=== PATIENT | female | born 1945 | race Caucasian/White ===

== ENCOUNTER 2017-08-24 16:59 | Observation (INO) | payer MEDICARE, OTHER ==
[2017-08-24] MEDS ORDERED: SODIUM CHLORIDE 0.9% 1,000 ML IV STA (17:21)
[2017-08-24] MEDS ORDERED: ONDANSETRON 4 MG/2 ML VIAL IVP STA (17:21)
[2017-08-24] MEDS ORDERED: RX INFO: IV CONTRAST WAS GIVEN 1 EACH MISC MISCELLANE PRN (17:22)
[2017-08-24 17:47] LABS: Basophils % (A) 0 %; Eosinophils % (A) 0 %; HCT 39.7 % (34.0-46.0); HGB 13.7 gm/dL (11.4-16.0); Lymphocytes # (A) 1.2 k/uL (1.0-4.8); Lymphocytes % (A) 14 %; MCH 29.4 pg (25.0-35.0); MCHC 34.6 g/dL (31.0-37.0); MCV 84.9 fL (80.0-100.0); Mean Platelet Volume 6.9; Monocytes # (A) 0.5 k/uL (0-1.0); Monocytes % (A) 6 %; Neutrophils # (A) 6.8 k/uL (1.3-7.7); Neutrophils % (A) 78 %; Platelet Count 441 k/uL (150-450); RBC 4.68 m/uL (3.80-5.40); RDW 13.6 % (11.5-15.5); WBC 8.7 k/uL (3.8-10.6)
[2017-08-24 17:49] LABS: Albumin 4.4 g/dL (3.5-5.0); Calcium 9.3 mg/dL (8.4-10.2); Total Bilirubin 0.8 mg/dL (0.2-1.3)
[2017-08-24 17:50] LABS: Potassium 4.8 mmol/L (3.5-5.1)
--- NOTE | 2017-08-24 18:27 | ED ---
Nausea/Vomiting/Diarrhea HPI - General Chief complaint: Nausea/Vomiting/Diarrhea Stated complaint: Nausea/vomiting Time Seen by Provider: 08/24/17 17:16 Source: patient, EMS, RN notes reviewed Mode of arrival: EMS Limitations: physical limitation - History of Present Illness Initial comments: This a 72-year-old female presents emergency department via EMS from [facility] on the leg for nausea vomiting. Patient's advise been having worsening issues. Primary care physician did call stating that he requests patient be admitted and see GI. Patient herself does complain of some abdominal discomfort primarily on the right. Patient states that she has difficulty and bleeding and did have a fall and which staff caught her and lowered her to the ground. She states she did not hit her head or have any loss conscious. PCP requests CT of brain causes of concern of head injury. Patient reports no dysuria no hematuria denies any diarrhea constipation reports no fevers or chills. Patient denies chest pain or shortness of breath - Related Data Home Medications Medication Instructions Recorded Confirmed Calcium Carbonate/Vitamin D3 1 tab PO DAILY 03/10/15 05/19/15 [Calcium 600-Vit D3 400 Tablet] Donepezil [Aricept] 10 mg PO BID 03/10/15 05/19/15 Furosemide [Lasix] 40 mg PO DAILY 03/10/15 05/19/15 Phenytoin Sodium Extended 200 mg PO BID 03/10/15 05/19/15 [Dilantin] Potassium Chloride ER [K-Dur 10] 20 meq PO DAILY 03/10/15 05/19/15 Warfarin [Coumadin] 2.5 mg PO DAILY 03/10/15 05/20/15 carBAMazepine [TEGretol] 400 mg PO TID 03/10/15 05/19/15 Fenofibrate [Lofibra] 160 mg PO HS 05/19/15 05/19/15 Memantine HCl [Namenda Xr] 28 mg PO DAILY 05/19/15 05/19/15 Metolazone [Zaroxolyn] 5 mg PO DAILY 05/19/15 05/19/15 Pioglitazone [Actos] 30 mg PO DAILY 05/19/15 05/19/15 Rosuvastatin Calcium [Crestor] 40 mg PO DAILY 05/19/15 05/19/15 Previous Rx's Medication Instructions Recorded traMADol HCl [Ultram] 50 mg PO Q6H PRN #60 tab 05/22/15 Allergies Allergy/AdvReac Type Severity Reaction Status Date / Time codeine Allergy Vomiting Verified 05/19/15 22:13 cortisone Allergy Vomiting Verified 05/19/15 22:13 Review of Systems ROS Statement: Those systems with pertinent positive or pertinent negative responses have been documented in the HPI. ROS Other: All systems not noted in ROS Statement are negative. Past Medical History Past Medical History: Cancer, Heart Failure, Diabetes Mellitus, Deep Vein Thrombosis (DVT), Hyperlipidemia, Hypertension, Memory Impairment, Osteoarthritis (OA), Pneumonia, Pulmonary Embolus (PE), Seizure Disorder Additional Past Medical History / Comment(s): falls, poor circulation, per past hx tia, enlarged heart, bronchitis,osteoporosis, cervical cancer-had sx only no chemo no radiation History of Any Multi-Drug Resistant Organisms: None Reported Past Surgical History: Cholecystectomy, Hysterectomy, Orthopedic Surgery Additional Past Surgical History / Comment(s): cataract removal bilateral, orif rt elbow, yaquelin ankle sx has palte and screws yaquelin Past Anesthesia/Blood Transfusion Reactions: Previous Problems w/ Anesthesia Additional Past Anesthesia/Blood Transfusion Reaction / Comment(s): per past hx pt statted" they gave me aa and abx to close together and i almost " Past Psychological History: No Psychological Hx Reported Smoking Status: Never smoker Past Alcohol Use History: None Reported Past Drug Use History: None Reported - Past Family History Father History Unknown: Yes Mother History Unknown: Yes General Exam Limitations: physical limitation General appearance: alert, in no apparent distress Head exam: Present: atraumatic, normocephalic, normal inspection Eye exam: Present: normal appearance, PERRL, EOMI. Absent: scleral icterus, conjunctival injection, periorbital swelling ENT exam: Present: normal exam, normal oropharynx, mucous membranes moist Neck exam: Present: normal inspection, full ROM. Absent: tenderness, meningismus, lymphadenopathy Respiratory exam: Present: normal lung sounds bilaterally. Absent: respiratory distress, wheezes, rales, rhonchi, stridor Cardiovascular Exam: Present: regular rate, normal rhythm, normal heart sounds. Absent: systolic murmur, diastolic murmur, rubs, gallop, clicks GI/Abdominal exam: Present: soft, tenderness (Mild right lower quadrant tenderness), normal bowel sounds. Absent: distended, guarding, rebound, rigid Back exam: Absent: CVA tenderness (R), CVA tenderness (L) Skin exam: Present: warm, dry, intact, normal color. Absent: rash Course Vital Signs 08/24/17 08/24/17 17:01 18:07 Temperature 97.8 F Pulse Rate 83 91 Respiratory 18 16 Rate Blood Pressure 140/67 154/64 O2 Sat by Pulse 99 98 Oximetry Medical Decision Making - Medical Decision Making 72-year-old female presented from it from [facility] on the [place] for ongoing nausea vomiting worsened today. PCP is concerned about her condition with her nausea vomiting is requesting the patient be admitted for GI consultation. Patient had lab work, CT here to do. No acute abnormality's. She does have mild dehydration, acute kidney injury. Patient will be admitted for IV hydration, antiemetics and GI consult. - Lab Data Result diagrams: 08/24/17 17:22 08/24/17 17:22 Lab Results 08/24/17 08/24/17 08/24/17 Range/Units 17:22 17:22 17:22 WBC 8.7 (3.8-10.6) k/uL RBC 4.68 (3.80-5.40) m/uL Hgb 13.7 (11.4-16.0) gm/dL Hct 39.7 (34.0-46.0) % MCV 84.9 (80.0-100.0) fL MCH 29.4 (25.0-35.0) pg MCHC 34.6 (31.0-37.0) g/dL RDW 13.6 (11.5-15.5) % Plt Count 441 (150-450) k/uL Neutrophils % 78 % Lymphocytes % 14 % Monocytes % 6 % Eosinophils % 0 % Basophils % 0 % Neutrophils # 6.8 (1.3-7.7) k/uL Lymphocytes # 1.2 (1.0-4.8) k/uL Monocytes # 0.5 (0-1.0) k/uL Eosinophils # 0.0 (0-0.7) k/uL Basophils # 0.0 (0-0.2) k/uL Sodium 140 (137-145) mmol/L Potassium 4.8 (3.5-5.1) mmol/L Chloride 92 L (98-107) mmol/L Carbon Dioxide 33 H (22-30) mmol/L Anion Gap 15 mmol/L BUN 29 H (7-17) mg/dL Creatinine 1.07 H (0.52-1.04) mg/dL Est GFR (CKD-EPI)AfAm 59 (>60 ml/min/1.73 sqM) Est GFR (CKD-EPI)NonAf 52 (>60 ml/min/1.73 sqM) Glucose 130 H (74-99) mg/dL Calcium 9.3 (8.4-10.2) mg/dL Total Bilirubin 0.8 (0.2-1.3) mg/dL AST 38 H (14-36) U/L ALT 31 (9-52) U/L Alkaline Phosphatase 127 H (38-126) U/L Troponin I <0.012 (0.000-0.034) ng/mL Total Protein 8.0 (6.3-8.2) g/dL Albumin 4.4 (3.5-5.0) g/dL Amylase 68 (30-110) U/L Lipase 108 (23-300) U/L Urine Color Urine Appearance (Clear) Urine pH (5.0-8.0) Ur Specific [place] (1.001-1.035) Urine Protein (Negative) Urine Glucose (UA) (Negative) Urine Ketones (Negative) Urine Blood (Negative) Urine Nitrite (Negative) Urine Bilirubin (Negative) Urine Urobilinogen (<2.0) mg/dL Ur Leukocyte Esterase (Negative) Urine RBC (0-5) /hpf Urine WBC (0-5) /hpf Ur Squamous Epith Cells (0-4) /hpf Urine Bacteria (None) /hpf Hyaline Casts (0-2) /lpf 08/24/17 Range/Units 18:59 WBC (3.8-10.6) k/uL RBC (3.80-5.40) m/uL Hgb (11.4-16.0) gm/dL Hct (34.0-46.0) % MCV (80.0-100.0) fL MCH (25.0-35.0) pg MCHC (31.0-37.0) g/dL RDW (11.5-15.5) % Plt Count (150-450) k/uL Neutrophils % % Lymphocytes % % Monocytes % % Eosinophils % % Basophils % % Neutrophils # (1.3-7.7) k/uL Lymphocytes # (1.0-4.8) k/uL Monocytes # (0-1.0) k/uL Eosinophils # (0-0.7) k/uL Basophils # (0-0.2) k/uL Sodium (137-145) mmol/L Potassium (3.5-5.1) mmol/L Chloride (98-107) mmol/L Carbon Dioxide (22-30) mmol/L Anion Gap mmol/L BUN (7-17) mg/dL Creatinine (0.52-1.04) mg/dL Est GFR (CKD-EPI)AfAm (>60 ml/min/1.73 sqM) Est GFR (CKD-EPI)NonAf (>60 ml/min/1.73 sqM) Glucose (74-99) mg/dL Calcium (8.4-10.2) mg/dL Total Bilirubin (0.2-1.3) mg/dL AST (14-36) U/L ALT (9-52) U/L Alkaline Phosphatase (38-126) U/L Troponin I (0.000-0.034) ng/mL Total Protein (6.3-8.2) g/dL Albumin (3.5-5.0) g/dL Amylase (30-110) U/L Lipase (23-300) U/L Urine Color Yellow Urine Appearance Clear (Clear) Urine pH 8.0 (5.0-8.0) Ur Specific [place] 1.019 (1.001-1.035) Urine Protein Negative (Negative) Urine Glucose (UA) Negative (Negative) Urine Ketones Negative (Negative) Urine Blood Negative (Negative) Urine Nitrite Negative (Negative) Urine Bilirubin Negative (Negative) Urine Urobilinogen <2.0 (<2.0) mg/dL Ur Leukocyte Esterase Large H (Negative) Urine RBC 1 (0-5) /hpf Urine WBC 5 (0-5) /hpf Ur Squamous Epith Cells 3 (0-4) /hpf Urine Bacteria Rare H (None) /hpf Hyaline Casts 3 H (0-2) /lpf 08/24/17 19:11 EKG performed at 17:13 normal sinus rhythm with a rate of 87 CO 156 QRS 86 QT/ QTC 406/488 Disposition Clinical Impression: Nausea & vomiting, Weakness, Abdominal pain, ALMITA (acute kidney injury), Dehydration Disposition: ADMITTED IP TO THIS HOSP Condition: Stable Referrals: Sam Jones MD [Primary Care Provider] - 1-2 days
[2017-08-24 19:05] LABS: Appearance,Urine Clear (Clear); Bacteria,Urine Rare /hpf; Bilirubin,Urine Negative (Negative); Blood,Urine Negative (Negative); Color,Urine Yellow; Glucose,Urine (UA) Negative (Negative); Hyaline Casts,Urine 3 /lpf (0-2); Ketones,Urine Negative (Negative); Leukocyte Esterase,Urine Large (Negative); Nitrite,Urine Negative (Negative); Protein,Urine Negative (Negative); RBC,Urine 1 /hpf (0-5); Specific Gravity,Urine 1.019 (1.001-1.035); Squamous Epithelial Cell,Urine 3 /hpf (0-4); Urobilinogen,Urine <2.0 mg/dL (<2.0); WBC,Urine 5 /hpf (0-5)
--- NOTE | 2017-08-24 19:07 | CT ---
EXAMINATION: CT brain wo con DATE AND TIME: 08/24/2017 6:52 PM ORDERING PROVIDER: Jhonny Espino CLINICAL INDICATION: Pain following trauma TECHNIQUE: Standard departmental protocol. COMPARISON: CT 09/08/2010 DESCRIPTION: The calvarium is intact. There is no intracranial hemorrhage. There is no mass or mass e ffect. There is no definite new attenuation defect. Remainder of the intra-axial and extra-axial comp artment examination is unremarkable. The paranasal sinuses, middle ear cavities, and mastoid sinus ai r cells are clear. The orbits are intact. IMPRESSION: NO ACUTE PROCESS.
--- NOTE | 2017-08-24 19:10 | CT ---
EXAMINATION TYPE: CT abdomen pelvis w con DATE OF EXAM: 08/24/2017 COMPARISON: 08/18/2010 HISTORY: Fall today with right sided abdominal pain, nausea and vomiting. CT DLP: 1627 mGycm Automated exposure control for dose reduction was used. TECHNIQUE: Helical acquisition of images was performed from the lung bases through the pelvis. CONTRAST: Performed without Oral Contrast and with IV Contrast, patient injected with 80 mL of Isovue 370. FINDINGS: LUNG BASES: No significant abnormality is appreciated. LIVER/GB: No significant abnormality is appreciated. PANCREAS: No significant abnormality is seen. SPLEEN: No significant abnormality is seen. ADRENALS: No significant abnormality is seen. KIDNEYS: No significant abnormality is seen. FREE AIR: No free air is visualized. RETROPERITONEAL ADENOPATHY: None visualized REPRODUCTIVE ORGANS: No significant abnormality is seen URINARY BLADDER: No significant abnormality is seen. PELVIC ADENOPATHY: None visualized. OSSEOUS STRUCTURES: No significant abnormality is seen. BOWEL: No significant abnormality is seen. VASCULATURE: Unremarkable. IMPRESSION: NO ACUTE PROCESS.
[2017-08-24] MEDS ORDERED: ACETAMINOPHEN TAB 325 MG TAB PO PRN (19:17)
[2017-08-24] MEDS ORDERED: ONDANSETRON 4 MG/2 ML VIAL IVP PRN (19:17)
[2017-08-24] MEDS: SODIUM CHLORIDE 0.9% 1,000 ML IV SCH (20:29)
[2017-08-25 06:57] VITALS: BP 123/59; PULSE 75; TEMP 97.9
[2017-08-25] MEDS ORDERED: ONDANSETRON 4 MG/2 ML VIAL IVP PRN (07:37)
[2017-08-25] MEDS ORDERED: PANTOPRAZOLE 40 MG/10 ML VIAL IVP SCH (09:00)
[2017-08-25 09:59] LABS: Basophils % (A) 0 %; Eosinophils # (A) 0.1 k/uL (0-0.7); Eosinophils % (A) 1 %; HCT 37.7 % (34.0-46.0); HGB 12.7 gm/dL (11.4-16.0); Lymphocytes # (A) 1.3 k/uL (1.0-4.8); Lymphocytes % (A) 14 %; MCH 29.4 pg (25.0-35.0); MCHC 33.8 g/dL (31.0-37.0); Mean Platelet Volume 6.8; Monocytes # (A) 0.5 k/uL (0-1.0); Monocytes % (A) 6 %; Neutrophils # (A) 7.4 k/uL (1.3-7.7); Neutrophils % (A) 78 %; Platelet Count 399 k/uL (150-450); RBC 4.33 m/uL (3.80-5.40); RDW 13.8 % (11.5-15.5); WBC 9.5 k/uL (3.8-10.6)
--- NOTE | 2017-08-25 10:03 | P.CONS ---
History of Present Illness - Reason for Consult Consult date: 08/25/17 Nausea vomiting Requesting physician: Doreen Velasco - History of Present Illness 72-year-old female with a history of DVT maintained on warfarin, hyperlipidemia , hypertension, memory impairment, heart failure, pulmonary embolism, seizure disorder, cholecystectomy, and cervical cancer. Patient presents from [facility] status post fall with intractable nausea vomiting. Patient states she was experiencing some nausea with a few nonbloody emesis yesterday and day prior but none this morning. Denies abdominal pain, diarrhea fever chills hematemesis hematochezia melena. No history of peptic ulcer disease or recent EGD. According to the ER records PCP is concerned about her nausea vomiting is requesting a GI consultation. CT abdomen and pelvis no acute process. Urinalysis large leukocyte esterase rare bacteria. Hemoglobin 13.7. White count 8.7. Platelets 441. BUN 29. Creatinine 1.0. Lipase 108. Review of Systems Constitutional: Denies fever, chills, sweats, weight gain, or loss. HEENT: Negative for migraines, blurred vision or loss, earaches, drainage, tinnitus, oral mucosal lesions, dysphagia, or odynophagia. CARDIAC: Negative for chest pain, arrhythmias, or palpitation. RESPIRATORY: Negative for shortness of breath, hemoptysis, cough, or sputum production. GI: See HPI for pertinent findings. : Negative for hematuria, urgency, frequency, polyuria, or dysuria. GYNc: Denies possibility of . Negative vaginal discharge. MUSCULOSKELETAL: Negative for muscle aches, swelling, arthritis, and arthralgias. NEUROLOGIC: Negative for stroke or TIA. ENDOCRINE: Negative for thyroid problems. SKIN: Negative for rash or itching. PSYCHIATRIC: Negative history for depression and anxiety Past Medical History Past Medical History: Cancer, Heart Failure, Diabetes Mellitus, Deep Vein Thrombosis (DVT), Hyperlipidemia, Hypertension, Memory Impairment, Osteoarthritis (OA), Pneumonia, Pulmonary Embolus (PE), Seizure Disorder Additional Past Medical History / Comment(s): falls, poor circulation, per past hx tia, enlarged heart, bronchitis,osteoporosis, cervical cancer-had sx only no chemo no radiation History of Any Multi-Drug Resistant Organisms: None Reported Past Surgical History: Cholecystectomy, Hysterectomy, Orthopedic Surgery Additional Past Surgical History / Comment(s): cataract removal bilateral, orif rt elbow, yaquelin ankle sx has palte and screws yaquelin Past Anesthesia/Blood Transfusion Reactions: Previous Problems w/ Anesthesia Additional Past Anesthesia/Blood Transfusion Reaction / Comm: per past hx pt statted" they gave me aa and abx to close together and i almost " Past Psychological History: No Psychological Hx Reported Smoking Status: Never smoker Past Alcohol Use History: None Reported Past Drug Use History: None Reported - Past Family History Father History Unknown: Yes Mother History Unknown: Yes Medications and Allergies Home Medications Medication Instructions Recorded Confirmed Type Calcium Carbonate/Vitamin D3 1 tab PO DAILY@0900 03/10/15 08/24/17 History [Calcium 600-Vit D3 400 Tablet] Donepezil [Aricept] 10 mg PO BID@0900,2100 03/10/15 08/24/17 History Furosemide [Lasix] 40 mg PO DIRECTED 03/10/15 08/24/17 History Phenytoin Sodium Extended 200 mg PO BID@0900,2100 03/10/15 08/24/17 History [Dilantin] Potassium Chloride ER [K-Dur 10] 10 meq PO DAILY@1200 03/10/15 08/24/17 History Warfarin [Coumadin] 2 mg PO MOTH 03/10/15 08/24/17 History carBAMazepine [TEGretol] 400 mg PO TID@0600,1400,209903/10/15 08/24/17 History Memantine HCl [Namenda Xr] 28 mg PO DAILY@0900 05/19/15 08/24/17 History Pioglitazone [Actos] 30 mg PO DAILY@0900 05/19/15 08/24/17 History Acetaminophen Tab [Tylenol Tab] 650 mg PO Q4H PRN 08/24/17 08/24/17 History Albuterol Nebulized [Ventolin 2.5 mg INHALATION RT-Q6H PRN 08/24/17 08/24/17 History Nebulized] Ammonium Lactate Lotion 1 applic TOPICAL HS 08/24/17 08/24/17 History [Lac-Hydrin 12% Lotion] Atorvastatin Calcium [Lipitor] 80 mg PO HS@209908/24/17 08/24/17 History Bismuth Subsalicylate 524 mg PO Q4HR PRN 08/24/17 08/24/17 History [Pepto-Bismol] Cholecalciferol [Vitamin D3] 5,000 unit PO DAILY@0900 08/24/17 08/24/17 History Insulin Aspart [Novolog Flexpen] 5 unit SQ AC-TID 08/24/17 08/24/17 History Insulin Detemir [Levemir Flextouch] 35 unit SQ HS@2100 08/24/17 08/24/17 History Liraglutide [Victoza 3-Evelio] 1.2 mg SQ DAILY 08/24/17 08/24/17 History Loratadine [Claritin] 10 mg PO DAILY PRN 08/24/17 08/24/17 History Metolazone [Zaroxolyn] 2.5 mg PO DAILY@0600 08/24/17 08/24/17 History Potassium Chloride ER [K-Dur 20] 20 meq PO BID@0900,1700 08/24/17 08/24/17 History Warfarin [Coumadin] 3 mg PO SUTUWEFRSA 08/24/17 08/24/17 History guaiFENesin SYRUP 100MG/5ML 200 mg PO Q4HR PRN 08/24/17 08/24/17 History [Robitussin] Allergies Allergy/AdvReac Type Severity Reaction Status Date / Time codeine Allergy Vomiting Verified 08/24/17 19:32 cortisone Allergy Vomiting Verified 08/24/17 19:32 Physical Exam Vitals: Vital Signs Temp Pulse Resp BP Pulse Ox 08/25/17 06:55 97.9 F 75 17 123/59 96 08/25/17 05:56 77 17 121/58 96 08/25/17 02:17 89 16 123/59 95 08/25/17 00:31 79 18 106/55 93 L 08/24/17 23:07 92 17 114/55 96 08/24/17 21:48 88 16 118/57 96 08/24/17 18:07 91 16 154/64 98 08/24/17 17:01 97.8 F 83 18 140/67 99 Intake and Output 08/24/17 08/25/17 08/25/17 22:59 06:59 14:59 Other: Weight 95.254 kg General appearance: The patient is alert, oriented, in no acute distress. HET: Head is normocephalic and atraumatic. Pupils are equal and reactive. Oropharynx is clear without lesions. Neck: Supple without lymphadenopathy. Trachea midline. Heart: S1 S2. Regular rate and rhythm. Lungs: No crackles or wheezes are heard. Abdomen: Soft, nontender, nondistended with bowel sounds. No peritoneal signs. No palpable organomegaly or masses. Extremities: Normal skin color and turgor. No cyanosis, rash, ulceration, clubbing, or edema. Radial and pedal pulses are 2/4 bilaterally. Neurological: No focal deficits. Strength and sensation are grossly intact. Results CBC & Chem 7: 08/24/17 17:22 08/24/17 17:22 Labs: Abnormal Lab Results - Last 24 Hours (Table) 08/24/17 08/24/17 Range/Units 17:22 18:59 Chloride 92 L (98-107) mmol/L Carbon Dioxide 33 H (22-30) mmol/L BUN 29 H (7-17) mg/dL Creatinine 1.07 H (0.52-1.04) mg/dL Glucose 130 H (74-99) mg/dL AST 38 H (14-36) U/L Alkaline Phosphatase 127 H (38-126) U/L Ur Leukocyte Esterase Large H (Negative) Urine Bacteria Rare H (None) /hpf Hyaline Casts 3 H (0-2) /lpf CT scan - abdomen: report reviewed (Dr. Sinha) Assessment and Plan (1) Nausea & vomiting Narrative/Plan: Possible gastroenteritis etiology is unclear presently patient denies abdominal pain without further episodes of nausea or vomiting. Current Visit: Yes Status: Acute Code(s): R11.2 - NAUSEA WITH VOMITING, UNSPECIFIED SNOMED Code(s): 92314864 Plan: 1. Considering patient is asymptomatic and expressing hunger without abdominal pain will advance diet and observe. If patient tolerates diet continue to observe with PPI therapy and antinausea medications as needed. If patient about increased nausea vomiting during this hospitalization we'll proceed with EGD evaluation. Thank you for this kind referral and the opportunity to participate in the care of your patient. This consultation was discussed with Dr. Sinha. The impression and plan of care have been directed as dictated.
[2017-08-25 10:04] LABS: INR 2.3 (<1.2); Prothrombin Time 20.7 sec (9.0-12.0)
[2017-08-25 10:47] LABS: Albumin 3.2 g/dL (3.5-5.0); Calcium 8.5 mg/dL (8.4-10.2); Potassium 3.3 mmol/L (3.5-5.1); Total Bilirubin 0.3 mg/dL (0.2-1.3)
[2017-08-25] MEDS: SODIUM CHLORIDE 0.9% 1,000 ML IV SCH (11:05)
[2017-08-25] MEDS ORDERED: POTASSIUM CHLORIDE ER 20 MEQ TAB.ER PO STA (11:14)
--- NOTE | 2017-08-25 11:20 | P.HPIM ---
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 Patient presents from ECF status post fall with intractable nausea vomiting. Patient states she was experiencing some nausea with a few nonbloody emesis yesterday and day prior but none this morning. Denies abdominal pain, diarrhea fever chills hematemesis hematochezia melena. No history of peptic ulcer disease or recent EGD. Patient also results will be discharged today back to subacute rehabilitation. Patient was discharged on Prilosec. Patient is still having minimal abdominal cramping sensation in the bilateral lower abdomen all the abdomen is soft. Review of Systems REVIEW OF SYSTEMS: CONSTITUTIONAL: No fever, no malaise, no fatigue. HEENT: No recent visual problems or hearing problems. Denied any sore throat. CARDIOVASCULAR: No chest pain, orthopnea, PND, no palpitations, no syncope. PULMONARY: No shortness of breath, no cough, no hemoptysis. GASTROINTESTINAL: As described in HPI NEUROLOGICAL: No headaches, no weakness, no numbness. HEMATOLOGICAL: Denies any bleeding or petechiae. GENITOURINARY: Denies any burning micturition, frequency, or urgency. MUSCULOSKELETAL/RHEUMATOLOGICAL: Denies any joint pain, swelling, or any muscle pain. ENDOCRINE: Denies any polyuria or polydipsia. The rest of the 14-point review of systems is negative. Past Medical History Past Medical History: Cancer, Heart Failure, Diabetes Mellitus, Deep Vein Thrombosis (DVT), Hyperlipidemia, Hypertension, Memory Impairment, Osteoarthritis (OA), Pneumonia, Pulmonary Embolus (PE), Seizure Disorder Additional Past Medical History / Comment(s): falls, poor circulation, per past hx tia, enlarged heart, bronchitis,osteoporosis, cervical cancer-had sx only no chemo no radiation History of Any Multi-Drug Resistant Organisms: None Reported Past Surgical History: Cholecystectomy, Hysterectomy, Orthopedic Surgery Additional Past Surgical History / Comment(s): cataract removal bilateral, orif rt elbow, yaquelin ankle sx has palte and screws yaquelin Past Anesthesia/Blood Transfusion Reactions: Previous Problems w/ Anesthesia Additional Past Anesthesia/Blood Transfusion Reaction / Comment(s): per past hx pt statted" they gave me aa and abx to close together and i almost " Past Psychological History: No Psychological Hx Reported Smoking Status: Never smoker Past Alcohol Use History: None Reported Past Drug Use History: None Reported - Past Family History Father History Unknown: Yes Mother History Unknown: Yes Medications and Allergies Home Medications Medication Instructions Recorded Confirmed Type Calcium Carbonate/Vitamin D3 1 tab PO DAILY@0900 03/10/15 08/24/17 History [Calcium 600-Vit D3 400 Tablet] Donepezil [Aricept] 10 mg PO BID@0900,2100 03/10/15 08/24/17 History Furosemide [Lasix] 40 mg PO DIRECTED 03/10/15 08/24/17 History Phenytoin Sodium Extended 200 mg PO BID@0900,209903/10/15 08/24/17 History [Dilantin] Potassium Chloride ER [K-Dur 10] 10 meq PO DAILY@1200 03/10/15 08/24/17 History Warfarin [Coumadin] 2 mg PO MOTH 03/10/15 08/24/17 History carBAMazepine [TEGretol] 400 mg PO TID@0600,1400,209903/10/15 08/24/17 History Memantine HCl [Namenda Xr] 28 mg PO DAILY@0900 05/19/15 08/24/17 History Pioglitazone [Actos] 30 mg PO DAILY@0900 05/19/15 08/24/17 History Acetaminophen Tab [Tylenol Tab] 650 mg PO Q4H PRN 08/24/17 08/24/17 History Albuterol Nebulized [Ventolin 2.5 mg INHALATION RT-Q6H PRN 08/24/17 08/24/17 History Nebulized] Ammonium Lactate Lotion 1 applic TOPICAL HS 08/24/17 08/24/17 History [Lac-Hydrin 12% Lotion] Atorvastatin Calcium [Lipitor] 80 mg PO HS@209908/24/17 08/24/17 History Bismuth Subsalicylate 524 mg PO Q4HR PRN 08/24/17 08/24/17 History [Pepto-Bismol] Cholecalciferol [Vitamin D3] 5,000 unit PO DAILY@0900 08/24/17 08/24/17 History Insulin Aspart [Novolog Flexpen] 5 unit SQ AC-TID 08/24/17 08/24/17 History Insulin Detemir [Levemir Flextouch] 35 unit SQ HS@2100 08/24/17 08/24/17 History Liraglutide [Victoza 3-Evelio] 1.2 mg SQ DAILY 08/24/17 08/24/17 History Loratadine [Claritin] 10 mg PO DAILY PRN 08/24/17 08/24/17 History Metolazone [Zaroxolyn] 2.5 mg PO DAILY@0600 08/24/17 08/24/17 History Potassium Chloride ER [K-Dur 20] 20 meq PO BID@0900,1700 08/24/17 08/24/17 History Warfarin [Coumadin] 3 mg PO SUTUWEFRSA 08/24/17 08/24/17 History guaiFENesin SYRUP 100MG/5ML 200 mg PO Q4HR PRN 08/24/17 08/24/17 History [Robitussin] Omeprazole [PriLOSEC] 40 mg PO AC-STEFANKFST #14 capsule. 08/25/17 Rx Allergies Allergy/AdvReac Type Severity Reaction Status Date / Time codeine Allergy Vomiting Verified 08/24/17 19:32 cortisone Allergy Vomiting Verified 08/24/17 19:32 Physical Exam Vitals: Vital Signs Temp Pulse Resp BP Pulse Ox 08/25/17 06:55 97.9 F 75 17 123/59 96 08/25/17 05:56 77 17 121/58 96 08/25/17 02:17 89 16 123/59 95 08/25/17 00:31 79 18 106/55 93 L 08/24/17 23:07 92 17 114/55 96 08/24/17 21:48 88 16 118/57 96 08/24/17 18:07 91 16 154/64 98 08/24/17 17:01 97.8 F 83 18 140/67 99 Intake and Output 08/24/17 08/25/17 08/25/17 22:59 06:59 14:59 Other: Weight 95.254 kg PHYSICAL EXAMINATION: GENERAL: The patient is alert and oriented x3, not in any acute distress. Well developed, well nourished. HEENT: Pupils are round and equally reacting to light. EOMI. No scleral icterus. No conjunctival pallor. Normocephalic, atraumatic. No pharyngeal erythema. No thyromegaly. CARDIOVASCULAR: S1 and S2 present. No murmurs, rubs, or gallops. PULMONARY: Chest is clear to auscultation, no wheezing or crackles. ABDOMEN: Soft, nontender, nondistended, normoactive bowel sounds. No palpable organomegaly. MUSCULOSKELETAL: No joint swelling or deformity. EXTREMITIES: No cyanosis, clubbing, or pedal edema. NEUROLOGICAL: Gross neurological examination did not reveal any new focal deficits. Patient does have bilateral lower limb but weakness which is chronic SKIN: No rashes. Results CBC & Chem 7: 08/25/17 09:36 08/25/17 09:36 Labs: Abnormal Lab Results - Last 24 Hours (Table) 08/24/17 08/24/17 08/25/17 Range/Units 17:22 18:59 09:36 PT 20.7 H (9.0-12.0) sec INR 2.3 H (<1.2) Potassium (3.5-5.1) mmol/L Chloride 92 L (98-107) mmol/L Carbon Dioxide 33 H (22-30) mmol/L BUN 29 H (7-17) mg/dL Creatinine 1.07 H (0.52-1.04) mg/dL Glucose 130 H (74-99) mg/dL AST 38 H (14-36) U/L Alkaline Phosphatase 127 H (38-126) U/L Total Protein (6.3-8.2) g/dL Albumin (3.5-5.0) g/dL Ur Leukocyte Esterase Large H (Negative) Urine Bacteria Rare H (None) /hpf Hyaline Casts 3 H (0-2) /lpf 08/25/17 Range/Units 09:36 PT (9.0-12.0) sec INR (<1.2) Potassium 3.3 L (3.5-5.1) mmol/L Chloride (98-107) mmol/L Carbon Dioxide (22-30) mmol/L BUN (7-17) mg/dL Creatinine (0.52-1.04) mg/dL Glucose 212 H (74-99) mg/dL AST (14-36) U/L Alkaline Phosphatase (38-126) U/L Total Protein 6.0 L (6.3-8.2) g/dL Albumin 3.2 L (3.5-5.0) g/dL Ur Leukocyte Esterase (Negative) Urine Bacteria (None) /hpf Hyaline Casts (0-2) /lpf Assessment and Plan Plan: -Gastroenteritis: Resolved at this time patient will be discharged on Prilosec. -Congestive heart failure: Unsure whether patient has a systolic or diastolic dysfunction patient is not in heart failure exacerbation at this time. 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 Jones there
--- NOTE | 2017-08-25 11:44 | P.DS ---
Providers Date of admission: 08/24/17 19:38 Attending physician: Doreen Velasco Consults: 08/24/17 19:17 Consult Physician Stat Consulting Provider: Adwoa Chan Consult Reason/Comments: nausea, vomiting recurrent/ongoing Do you want consulting provider notified?: Yes Primary care physician: [facility] Course: Please refer to my HPI Patient Condition at Discharge: Stable Plan - Discharge Summary New Discharge Prescriptions: New Omeprazole [PriLOSEC] 40 mg PO AC-BRKFST #14 capsule. No Action carBAMazepine [TEGretol] 400 mg PO TID@0600,1400,2100 Potassium Chloride ER [K-Dur 10] 10 meq PO DAILY@1200 Phenytoin Sodium Extended [Dilantin] 200 mg PO BID@0900,2100 Donepezil [Aricept] 10 mg PO BID@0900,2100 Calcium Carbonate/Vitamin D3 [Calcium 600-Vit D3 400 Tablet] 1 tab PO DAILY@ 0900 Warfarin [Coumadin] 2 mg PO MOTH Furosemide [Lasix] 40 mg PO DIRECTED Memantine HCl [Namenda Xr] 28 mg PO DAILY@0900 Pioglitazone [Actos] 30 mg PO DAILY@0900 Ammonium Lactate Lotion [Lac-Hydrin 12% Lotion] 1 applic TOPICAL HS Acetaminophen Tab [Tylenol Tab] 650 mg PO Q4H PRN PRN Reason: Pain Loratadine [Claritin] 10 mg PO DAILY PRN PRN Reason: Allergy Symptoms Bismuth Subsalicylate [Pepto-Bismol] 524 mg PO Q4HR PRN PRN Reason: Diarrhea guaiFENesin SYRUP 100MG/5ML [Robitussin] 200 mg PO Q4HR PRN PRN Reason: Cough Albuterol Nebulized [Ventolin Nebulized] 2.5 mg INHALATION RT-Q6H PRN PRN Reason: Shortness Of Breath Insulin Aspart [Novolog Flexpen] 5 unit SQ AC-TID Potassium Chloride ER [K-Dur 20] 20 meq PO BID@0900,1700 Liraglutide [Victoza 3-Evelio] 1.2 mg SQ DAILY Cholecalciferol [Vitamin D3] 5,000 unit PO DAILY@0900 Metolazone [Zaroxolyn] 2.5 mg PO DAILY@0600 Insulin Detemir [Levemir Flextouch] 35 unit SQ HS@2100 Warfarin [Coumadin] 3 mg PO SUTUWEFRSA Atorvastatin Calcium [Lipitor] 80 mg PO HS@2100 Discharge Medication List Calcium Carbonate/Vitamin D3 [Calcium 600-Vit D3 400 Tablet] 1 tab PO DAILY@ 0900 03/10/15 [History] Donepezil [Aricept] 10 mg PO BID@0900,209903/10/15 [History] Furosemide [Lasix] 40 mg PO DIRECTED 03/10/15 [History] Phenytoin Sodium Extended [Dilantin] 200 mg PO BID@0900,209903/10/15 [History] Potassium Chloride ER [K-Dur 10] 10 meq PO DAILY@1200 03/10/15 [History] Warfarin [Coumadin] 2 mg PO MOTH 03/10/15 [History] carBAMazepine [TEGretol] 400 mg PO TID@0600,1400,209903/10/15 [History] Memantine HCl [Namenda Xr] 28 mg PO DAILY@0900 05/19/15 [History] Pioglitazone [Actos] 30 mg PO DAILY@0900 05/19/15 [History] Acetaminophen Tab [Tylenol Tab] 650 mg PO Q4H PRN 08/24/17 [History] Albuterol Nebulized [Ventolin Nebulized] 2.5 mg INHALATION RT-Q6H PRN 08/24/17 [ History] Ammonium Lactate Lotion [Lac-Hydrin 12% Lotion] 1 applic TOPICAL HS 08/24/17 [ History] Atorvastatin Calcium [Lipitor] 80 mg PO HS@209908/24/17 [History] Bismuth Subsalicylate [Pepto-Bismol] 524 mg PO Q4HR PRN 08/24/17 [History] Cholecalciferol [Vitamin D3] 5,000 unit PO DAILY@0900 08/24/17 [History] Insulin Aspart [Novolog Flexpen] 5 unit SQ AC-TID 08/24/17 [History] Insulin Detemir [Levemir Flextouch] 35 unit SQ HS@2100 08/24/17 [History] Liraglutide [Victoza 3-Evelio] 1.2 mg SQ DAILY 08/24/17 [History] Loratadine [Claritin] 10 mg PO DAILY PRN 08/24/17 [History] Metolazone [Zaroxolyn] 2.5 mg PO DAILY@0600 08/24/17 [History] Potassium Chloride ER [K-Dur 20] 20 meq PO BID@0900,1700 08/24/17 [History] Warfarin [Coumadin] 3 mg PO SUTUWEFRSA 08/24/17 [History] guaiFENesin SYRUP 100MG/5ML [Robitussin] 200 mg PO Q4HR PRN 08/24/17 [History] Omeprazole [PriLOSEC] 40 mg PO AC-JUNIORFSZeeshan #14 capsule. 08/25/17 [Rx] Follow up Appointment(s)/Referral(s): Sam Jones MD [Primary Care Provider] - 1-2 days Discharge Disposition: HOME WITH HOME HEALTH SERVICES
[2017-08-25 13:05] VITALS: RESP 16
== END 2017-08-25 13:49 ==
LOC: EC 16:59 → 4MS4W 19:38
PROVIDERS: ADMIT Internal Medicine; ATTEND Internal Medicine
DX: K52.9 Noninfective gastroenteritis and colitis, unspecified (principal); N17.9 Acute kidney failure, unspecified; E86.0 Dehydration; I11.0 Hypertensive heart disease with heart failure; I50.9 Heart failure, unspecified; E78.5 Hyperlipidemia, unspecified; G40.909 Epilepsy, unspecified, not intractable, without status epilepticus; R41.3 Other amnesia; E11.9 Type 2 diabetes mellitus without complications; M19.90 Unspecified osteoarthritis, unspecified site; M81.0 Age-related osteoporosis without current pathological fracture; Z91.81 History of falling; Z88.8 Allergy status to other drugs, medicaments and biological substances; Z88.5 Allergy status to narcotic agent; Z79.899 Other long term (current) drug therapy; Z79.01 Long term (current) use of anticoagulants; Z79.84 Long term (current) use of oral hypoglycemic drugs; Z79.4 Long term (current) use of insulin; Z86.718 Personal history of other venous thrombosis and embolism; Z86.711 Personal history of pulmonary embolism; Z85.41 Personal history of malignant neoplasm of cervix uteri; Z87.01 Personal history of pneumonia (recurrent); Z90.49 Acquired absence of other specified parts of digestive tract; Z90.710 Acquired absence of both cervix and uterus
CPT/HCPCS: 99285 ×2; 96374 ×2; 96361 ×2; 36415; 93005; 80053 ×2; 82150; 83690; 84484; 85025 ×2; 85610; 81001; 70450; 74177; G0378 ×2; J2405; Q9967

== ENCOUNTER 2017-09-13 06:43 | Emergency (ER) | payer MEDICARE, OTHER ==
[2017-09-13] MEDS ORDERED: SODIUM CHLORIDE 0.9% 1,000 ML IV ONE (07:41)
[2017-09-13 08:03] LABS: Basophils % (A) 0 %; Eosinophils # (A) 0.1 k/uL (0-0.7); Eosinophils % (A) 1 %; HGB 12.7 gm/dL (11.4-16.0); Lymphocytes # (A) 1.4 k/uL (1.0-4.8); Lymphocytes % (A) 14 %; MCH 29.7 pg (25.0-35.0); MCHC 34.4 g/dL (31.0-37.0); MCV 86.3 fL (80.0-100.0); Mean Platelet Volume 6.9; Monocytes # (A) 0.7 k/uL (0-1.0); Monocytes % (A) 7 %; Neutrophils # (A) 7.8 k/uL (1.3-7.7); Neutrophils % (A) 77 %; Platelet Count 363 k/uL (150-450); RBC 4.28 m/uL (3.80-5.40); RDW 14.1 % (11.5-15.5); WBC 10.1 k/uL (3.8-10.6)
[2017-09-13] MEDS ORDERED: ONDANSETRON 4 MG/2 ML VIAL IVP STA (08:15)
[2017-09-13 08:17] LABS: Albumin 3.6 g/dL (3.5-5.0); Calcium 8.5 mg/dL (8.4-10.2); Total Bilirubin 0.5 mg/dL (0.2-1.3); Total Protein 6.5 g/dL (6.3-8.2)
[2017-09-13 08:18] LABS: INR 1.7 (<1.2); Prothrombin Time 15.5 sec (9.0-12.0)
[2017-09-13 08:19] LABS: Potassium 3.2 mmol/L (3.5-5.1)
--- NOTE | 2017-09-13 08:35 | CT ---
EXAMINATION TYPE: CT brain cspine wo con DATE OF EXAM: 09/13/2017 COMPARISON: Brain 08/24/2017 HISTORY: 72-year-old female Fall from wheelchair this morning. Laceration to left frontal region. CT DLP: 1086.8 mGycm Automated exposure control for dose reduction was used. Technique: Examination of the head was done in axial plane without intravenous contrast. Coronal and sagittal reconstructions performed. CT of the cervical spine was obtained in axial plane without intravenous injection of contrast mater ial. Coronal and sagittal reformatted images were obtained from the axial views for evaluation of f ractures, spinal alignment and canal. FINDINGS: Head: There is no evidence of acute intracranial hemorrhage, acute ischemic changes, mass, mass-effect, or extra-axial fluid collection. There is no effacement of cerebral sulci or basal subarachnoid cister ns. There is no hydrocephalus. There is no midline shift. Goldberg-white matter distinction is preserv ed. Mild to moderate cerebral cortical atrophy redemonstrated. Rightward nasal septal deviation. Dense cerumen in left external auditory canal. No calvarial fractur e. Mastoid air cells are well pneumatized. Cervical spine: No craniocervical junction abnormality, predental space widening, or prevertebral soft tissue swellin g. No acute fracture of the cervical spine. Alignment is maintained though there is straightening of the normal cervical lordosis. Bridging anterior endplate spondylosis from C4 through T1 levels suggestive of dish. There is advanced disc/endplate degenerative change throughout as well as hypertrophic facet and unco vertebral joint arthropathy. Changes result in wfjw-ma-kznrhtid spinal canal stenoses at C5-C6 and C6-C7. There is a broad-based p osterior disc protrusion at C3-C4 causing a moderate spinal canal stenosis with AP canal dimension me asured at point millimeters, sagittal image 21. Vertebral moderate to severe neuroforaminal stenoses throughout the cervical spine. Sagittal and coronal reformatted images confirm above findings. COMBINED IMPRESSION: 1. Mild to moderate cerebral atrophy. No acute intracranial abnormality seen. 2. A broad-based disc herniation at C3-C4 could be chronic or acute posttraumatic. It contributes to a moderate spinal canal stenosis. 3. Otherwise, no acute fracture or malalignment of the cervical spine. 4. Moderate to advanced multilevel spondylotic change as outlined above.
[2017-09-13] MEDS ORDERED: DIPH,PERTUS(ACELL)TETVAC-LF 0.5 ML VIAL IM ONE (09:04)
[2017-09-13 10:12] VITALS: TEMP 96.9
[2017-09-13] MEDS ORDERED: ACETAMINOPHEN TAB 500 MG TAB PO STA (11:51)
--- NOTE | 2017-09-13 12:00 | ED ---
Fall HPI - General Chief Complaint: Fall Stated Complaint: Fall Time Seen by Provider: 09/13/17 07:08 Source: patient, EMS Mode of arrival: EMS - History of Present Illness Initial Comments: Before years old lady came from skilled nursing she was in her chair she fell forward she hit her head against a hard surface now has a laceration denies any loss of consciousness does complain about headache and the neck pain she does have a dementia and she does change her story but today she is very pleasant. Denies any chest pain no shortness of breath no abdominal pain not sure about the tetanus status review of system is unremarkable otherwise she is on a blood thinners - Related Data Home Medications Medication Instructions Recorded Confirmed Calcium Carbonate/Vitamin D3 1 tab PO DAILY@0900 03/10/15 09/13/17 [Calcium 600-Vit D3 400 Tablet] Donepezil [Aricept] 10 mg PO BID@0900,2100 03/10/15 09/13/17 Furosemide [Lasix] 40 mg PO DIRECTED 03/10/15 09/13/17 Phenytoin Sodium Extended 200 mg PO BID@0900,209903/10/15 09/13/17 [Dilantin] Potassium Chloride ER [K-Dur 10] 10 meq PO DAILY@1200 03/10/15 09/13/17 Warfarin [Coumadin] 2 mg PO DAILY@1700 03/10/15 09/13/17 carBAMazepine [TEGretol] 400 mg PO TID@0600,1400,2200 03/10/15 09/13/17 Memantine HCl [Namenda Xr] 28 mg PO DAILY@0900 05/19/15 09/13/17 Pioglitazone [Actos] 30 mg PO DAILY@0900 05/19/15 09/13/17 Acetaminophen Tab [Tylenol Tab] 650 mg PO Q4H PRN 08/24/17 09/13/17 Albuterol Nebulized [Ventolin 2.5 mg INHALATION RT-Q6H PRN 08/24/17 09/13/17 Nebulized] Ammonium Lactate Lotion 1 applic TOPICAL HS 08/24/17 09/13/17 [Lac-Hydrin 12% Lotion] Atorvastatin Calcium [Lipitor] 80 mg PO HS@209908/24/17 09/13/17 Bismuth Subsalicylate 524 mg PO Q4HR PRN 08/24/17 09/13/17 [Pepto-Bismol] Cholecalciferol [Vitamin D3] 5,000 unit PO DAILY@0900 08/24/17 09/13/17 Insulin Aspart [Novolog Flexpen] 5 unit SQ AC-TID@08,11,17 08/24/17 09/13/17 Insulin Detemir [Levemir Flextouch] 35 unit SQ HS@2100 08/24/17 09/13/17 Liraglutide [Victoza 3-Evelio] 1.2 mg SQ DAILY@0900 08/24/17 09/13/17 Loratadine [Claritin] 10 mg PO DAILY PRN 08/24/17 09/13/17 Metolazone [Zaroxolyn] 2.5 mg PO DAILY@0600 08/24/17 09/13/17 Potassium Chloride ER [K-Dur 20] 20 meq PO BID@0900,1700 08/24/17 09/13/17 Warfarin [Coumadin] 1.5 mg PO DAILY@1700 08/24/17 09/13/17 guaiFENesin SYRUP 100MG/5ML 200 mg PO Q4HR PRN 08/24/17 09/13/17 [Robitussin] Omeprazole [PriLOSEC] 40 mg PO DAILY@0600 09/13/17 09/13/17 Ondansetron [Zofran] 4 mg PO TID PRN 09/13/17 09/13/17 Allergies Allergy/AdvReac Type Severity Reaction Status Date / Time codeine AdvReac Vomiting Verified 09/13/17 07:30 cortisone AdvReac Vomiting Verified 09/13/17 07:30 Review of Systems ROS Statement: Those systems with pertinent positive or pertinent negative responses have been documented in the HPI. ROS Other: All systems not noted in ROS Statement are negative. Past Medical History Past Medical History: Cancer, Heart Failure, CVA/TIA, Dementia, Diabetes Mellitus, Deep Vein Thrombosis (DVT), Hyperlipidemia, Hypertension, Memory Impairment, Osteoarthritis (OA), Pneumonia, Pulmonary Embolus (PE), Renal Disease, Seizure Disorder, Vascular Disorder Additional Past Medical History / Comment(s): Cardiomegaly, IDDM type II, DVT R leg and PE R lung, CKD stage III, arthritis bilateral hands and knees, bronchitis, last seizure about 2 years ago per pt, PVD, poor circulation R leg, falls, TIA, osteoporosis, past bilateral ankle fractures with surgery on R ankle , past cellulitis bilateral lower legs. History of Any Multi-Drug Resistant Organisms: None Reported Past Surgical History: Cholecystectomy, Hysterectomy, Orthopedic Surgery, Tonsillectomy Additional Past Surgical History / Comment(s): cataract removal bilateral with lens implants, orif rt elbow, R ankle sx has plate and screws, colonoscopy. Past Anesthesia/Blood Transfusion Reactions: Previous Problems w/ Anesthesia Additional Past Anesthesia/Blood Transfusion Reaction / Comment(s): per past hx pt stated, " They gave me aa and abx too close together and I almost " Past Psychological History: No Psychological Hx Reported Smoking Status: Never smoker Past Alcohol Use History: Unable to Obtain Past Drug Use History: None Reported, Unable to Obtain - Past Family History Father History Unknown: Yes Additional Family Medical History / Comment(s): Pt doesn't know father past medical history but states he lived to be 92 yrs old. Mother History Unknown: Yes Family Medical History: No Reported History Additional Family Medical History / Comment(s): Mother was healthy and lived to be 84 yrs old. General Exam - General Exam Comments Initial Comments: General: The patient is awake and alert, in no distress, and does not appear acutely ill. He is confused but pleasant and does follow the commands Skin: Skin is warm and dry and no rashes or lesions are noted. The laceration which is about 4.5 cm on the forehead Eye: Pupils are equal, round and reactive to light, extra-ocular movements are intact; there is normal conjunctiva bilaterally. Ears, nose, mouth and throat: There are moist mucous membranes and no oral lesions. Neck: The neck is supple, there is no tenderness or JVD. Cardiovascular: There is a regular rate and rhythm. No murmur, rub or gallop is appreciated. Respiratory: To auscultation bilateral, no wheezing no rhonchi no distress respiratory vega noticed Gastrointestinal: Soft, non-distended, non-tender abdomen without masses or organomegaly noted. There is no rebound or guarding present. Bowel sounds are unremarkable. Back: There is no tenderness to palpation in the midline. There is no obvious deformity. Musculoskeletal: Normal ROM, no tenderness, There is no pedal edema. There is no calf tenderness or swelling. No cords were appreciated. Neurological: CN II-XII intact, Cranial nerves III through XII are intact. There are no obvious motor or sensory deficits. Coordination appears grossly intact. Speech is normal. Psychiatric: Cooperative, appropriate mood & affect, normal judgment. Limitations: no limitations Course Vital Signs 09/13/17 09/13/17 09/13/17 06:50 08:05 10:10 Temperature 97.1 F L 96.9 F L Pulse Rate 81 79 83 Respiratory 18 20 20 Rate Blood Pressure 154/71 164/79 134/61 O2 Sat by Pulse 95 95 97 Oximetry 09/13/17 10:55 Temperature Pulse Rate 80 Respiratory 18 Rate Blood Pressure 120/58 O2 Sat by Pulse 96 Oximetry She was reassessed, noticed bulging disc in the cervical spine and head CT is normal C-spine ruled out any fracture CBC is okay INR is 1.7 potassium is 3.2 Procedures - Laceration Laceration #1 Consent Obtained: verbal consent Time Out Performed: Yes Indication: laceration Site: face Description: linear Depth: simple, single layer Anesthetic Used: lidocaine 1% Anesthesia Technique: local infiltration Pre-repair: wound explored, irrigated extensively Type of Sutures: nylon Size of Sutures: 5-0 Technique: simple, interrupted Complications: other (No complications noticed) Medical Decision Making - Lab Data Result diagrams: 09/13/17 07:50 09/13/17 07:50 Lab Results 09/13/17 09/13/17 09/13/17 Range/Units 07:50 07:50 07:50 WBC 10.1 (3.8-10.6) k/uL RBC 4.28 (3.80-5.40) m/uL Hgb 12.7 (11.4-16.0) gm/dL Hct 37.0 (34.0-46.0) % MCV 86.3 (80.0-100.0) fL MCH 29.7 (25.0-35.0) pg MCHC 34.4 (31.0-37.0) g/dL RDW 14.1 (11.5-15.5) % Plt Count 363 (150-450) k/uL Neutrophils % 77 % Lymphocytes % 14 % Monocytes % 7 % Eosinophils % 1 % Basophils % 0 % Neutrophils # 7.8 H (1.3-7.7) k/uL Lymphocytes # 1.4 (1.0-4.8) k/uL Monocytes # 0.7 (0-1.0) k/uL Eosinophils # 0.1 (0-0.7) k/uL Basophils # 0.0 (0-0.2) k/uL PT 15.5 H (9.0-12.0) sec INR 1.7 H (<1.2) Sodium 140 (137-145) mmol/L Potassium 3.2 L (3.5-5.1) mmol/L Chloride 94 L (98-107) mmol/L Carbon Dioxide 34 H (22-30) mmol/L Anion Gap 12 mmol/L BUN 22 H (7-17) mg/dL Creatinine 0.91 (0.52-1.04) mg/dL Est GFR (CKD-EPI)AfAm 72 (>60 ml/min/1.73 sqM) Est GFR (CKD-EPI)NonAf 62 (>60 ml/min/1.73 sqM) Glucose 136 H (74-99) mg/dL Calcium 8.5 (8.4-10.2) mg/dL Total Bilirubin 0.5 (0.2-1.3) mg/dL AST 32 (14-36) U/L ALT 38 (9-52) U/L Alkaline Phosphatase 107 (38-126) U/L Total Protein 6.5 (6.3-8.2) g/dL Albumin 3.6 (3.5-5.0) g/dL Disposition Clinical Impression: Head injury, Forehead laceration Disposition: HOME SELF-CARE Condition: Good Instructions: Fall Prevention for Older Adults (ED) Additional Instructions: The laceration was repaired in the ER, sutures are to come out in 6-7 days Is patient prescribed a controlled substance at d/c from ED?: No If prescribed controlled substance>3 days was MAPS reviewed?: No When asked, does pt state using other controlled substances?: No Referrals: Sam Jones MD [Primary Care Provider] - 1-2 days
[2017-09-13 12:03] VITALS: BP 136/67; PULSE 90; RESP 20
== END 2017-09-13 12:27 | disposition home or self-care (01) ==
LOC: EC 06:43
DX: S01.81XA Laceration without foreign body of other part of head, initial encounter (principal); R41.0 Disorientation, unspecified; M54.2 Cervicalgia; E78.5 Hyperlipidemia, unspecified; N18.3 Chronic kidney disease, stage 3 (moderate); I13.0 Hypertensive heart and chronic kidney disease with heart failure and stage 1 through stage 4 chronic kidney disease, or unspecified chronic kidney disease; I50.9 Heart failure, unspecified; I73.9 Peripheral vascular disease, unspecified; E11.22 Type 2 diabetes mellitus with diabetic chronic kidney disease; F03.90 Unspecified dementia, unspecified severity, without behavioral disturbance, psychotic disturbance, mood disturbance, and anxiety; G40.909 Epilepsy, unspecified, not intractable, without status epilepticus; Z79.01 Long term (current) use of anticoagulants; Z79.4 Long term (current) use of insulin; Z79.899 Other long term (current) drug therapy; Z88.5 Allergy status to narcotic agent; Z88.8 Allergy status to other drugs, medicaments and biological substances; Z86.718 Personal history of other venous thrombosis and embolism; Z86.711 Personal history of pulmonary embolism; Z23 Encounter for immunization; W07.XXXA Fall from chair, initial encounter; Y92.009 Unspecified place in unspecified non-institutional (private) residence as the place of occurrence of the external cause
CPT/HCPCS: 36415; 80053; 85025; 85610; 72125; 70450; 90715; 99284; 12013; 96374; 96361 ×4; 90471; J2405

== ENCOUNTER 2017-10-11 08:55 | Day surgery (SDC) | payer MEDICARE, OTHER ==
[2017-10-06 14:58] VITALS: BMI 29.5
[~2017-10-11 08:55] MED LIST: LACTATED RINGERS 1,000 ML IV SCH; LIDOCAINE 1% 20 ML VIAL (10MG/ML) FOR IV START INTRADERMA PRN; MIDAZOLAM 2 MG/2 ML VIAL IV PRN
[2017-10-11 09:30] VITALS: TEMP 98.2
[2017-10-11 09:34] LABS: Glucose,Whole Blood 244 mg/dL (75-99)
[2017-10-11] MEDS ORDERED: PROPOFOL 10 MG/ML 20 ML VIAL IV ONE (10:29)
[2017-10-11] MEDS ORDERED: IV FLUID CONTINUATION 600 ML IV ONE (10:47)
[2017-10-11 11:06] VITALS: RESP 16
[2017-10-11 11:11] LABS: Glucose,Whole Blood 206 mg/dL (75-99)
[2017-10-11 11:19] VITALS: BP 141/83; PULSE 87
--- NOTE | 2017-10-11 12:01 | P.PCN ---
Date of Procedure: 10/11/17 Procedure(s) Performed: Procedure: Esophagogastroduodenoscopy and biopsy. Preoperative diagnosis: Nausea and vomiting. Postoperative diagnosis: 1. Small sliding hiatal hernia with no obvious esophagitis or complicated reflux disease. 2. Mild antral gastritis. 3. Multiple biopsies obtained from the duodenum, antrum and esophagus. Preparation and sedation: Was provided by anesthesia. Brief clinical history: The patient is a 72-year-old female who is scheduled for this evaluation because of nausea and vomiting of around 2 months duration. The patient has not responded to symptomatic treatment. This evaluation is to rule out peptic ulcer disease, complicated reflux disease or other pathology. Procedure: With the patient on her left lateral decubitus position and after informed consent and adequate sedation, the Olympus-GIF 160 video upper endoscope was used and was advanced under direct vision through the cricopharyngeus down the esophagus. GE junction was around 35-36 cm from the incisors and there was a small sliding hiatal hernia with no obvious esophagitis or complicated reflux disease. The endoscope was then passed into the stomach which was insufflated with air and inspected in detail including the retroflex view in the cardia. There was some mottling and erythema in the antrum but no ulcers or erosions. Pyloric channel, duodenal bulb, post bulbar area and descending duodenum appeared within normal limits. However, because of her symptoms, I obtained biopsies from the duodenum, antrum and esophagus before the endoscope was withdrawn. The patient tolerated the procedure well. Plan: The patient was reassured. Will await biopsy results further plans can be made based on her course and biopsy results.
== END 2017-10-11 11:30 ==
LOC: ORWHC2ENDO 08:55
DX: K29.50 Unspecified chronic gastritis without bleeding (principal); K20.9 Esophagitis, unspecified; K44.9 Diaphragmatic hernia without obstruction or gangrene; I13.0 Hypertensive heart and chronic kidney disease with heart failure and stage 1 through stage 4 chronic kidney disease, or unspecified chronic kidney disease; E11.22 Type 2 diabetes mellitus with diabetic chronic kidney disease; N18.3 Chronic kidney disease, stage 3 (moderate); I50.9 Heart failure, unspecified; E78.5 Hyperlipidemia, unspecified; M19.90 Unspecified osteoarthritis, unspecified site; F03.90 Unspecified dementia, unspecified severity, without behavioral disturbance, psychotic disturbance, mood disturbance, and anxiety; M62.81 Muscle weakness (generalized); I25.2 Old myocardial infarction; Z86.73 Personal history of transient ischemic attack (TIA), and cerebral infarction without residual deficits; Z86.718 Personal history of other venous thrombosis and embolism; Z86.711 Personal history of pulmonary embolism; Z88.5 Allergy status to narcotic agent; Z88.8 Allergy status to other drugs, medicaments and biological substances
CPT/HCPCS: 88305; 43239; J2704

== ENCOUNTER 2017-10-13 15:19 | Inpatient (IN) | payer MEDICARE, OTHER ==
[2017-10-13] MEDS ORDERED: SODIUM CHLORIDE 0.9% 1,000 ML IV ONE (15:46)
--- NOTE | 2017-10-13 15:50 | ED ---
General Adult HPI - General Stated complaint: ALTERRED MENTAL STATUS Time Seen by Provider: 10/13/17 15:23 Source: patient, EMS, RN notes reviewed, old records reviewed Mode of arrival: EMS Limitations: altered mental status, physical limitation - History of Present Illness Initial comments: Patient is a pleasant 72-year-old female presenting to the emergency department with chief complaint of decreased responsiveness, change in mental status. Patient has limited verbal capability. History is very limited. Patient reportedly was seen somewhere 2 days ago with similar symptoms. Patient was not able to verbalize any specific complaints. He does have reported history of seizures. - Related Data Home Medications Medication Instructions Recorded Confirmed Calcium Carbonate/Vitamin D3 1 tab PO DAILY@0900 03/10/15 10/13/17 [Calcium 600-Vit D3 400 Tablet] Donepezil [Aricept] 10 mg PO BID@0900,209903/10/15 10/13/17 Furosemide [Lasix] 40 mg PO DIRECTED 03/10/15 10/13/17 Phenytoin Sodium Extended 200 mg PO BID@0900,209903/10/15 10/13/17 [Dilantin] Potassium Chloride ER [K-Dur 10] 10 meq PO DAILY@1200 03/10/15 10/13/17 Warfarin [Coumadin] 2 mg PO DAILY@1700 03/10/15 10/13/17 carBAMazepine [TEGretol] 400 mg PO TID@0600,1400,2200 03/10/15 10/13/17 Memantine HCl [Namenda Xr] 28 mg PO DAILY@0900 05/19/15 10/13/17 Pioglitazone [Actos] 30 mg PO DAILY@0900 05/19/15 10/13/17 Acetaminophen Tab [Tylenol Tab] 650 mg PO Q4H PRN 08/24/17 10/13/17 Albuterol Nebulized [Ventolin 2.5 mg INHALATION RT-Q6H PRN 08/24/17 10/13/17 Nebulized] Ammonium Lactate Lotion 1 applic TOPICAL HS@209908/24/17 10/13/17 [Lac-Hydrin 12% Lotion] Atorvastatin Calcium [Lipitor] 80 mg PO HS@209908/24/17 10/13/17 Bismuth Subsalicylate 524 mg PO Q4HR PRN 08/24/17 10/13/17 [Pepto-Bismol] Cholecalciferol [Vitamin D3] 5,000 unit PO DAILY@0900 08/24/17 10/13/17 Insulin Aspart [Novolog Flexpen] 5 unit SQ AC-TID@08,,08/24/17 10/13/17 Insulin Detemir [Levemir Flextouch] 35 unit SQ HS@2100 08/24/17 10/13/17 Liraglutide [Victoza 3-Evelio] 1.2 mg SQ DAILY@0900 08/24/17 10/13/17 Loratadine [Claritin] 10 mg PO DAILY PRN 08/24/17 10/13/17 Metolazone [Zaroxolyn] 2.5 mg PO DAILY@0600 08/24/17 10/13/17 Potassium Chloride ER [K-Dur 20] 20 meq PO BID@0900,1700 08/24/17 10/13/17 Warfarin [Coumadin] 1.5 mg PO DAILY@1700 08/24/17 10/13/17 guaiFENesin SYRUP 100MG/5ML 200 mg PO Q4HR PRN 08/24/17 10/13/17 [Robitussin] Omeprazole [PriLOSEC] 40 mg PO DAILY@0600 09/13/17 10/13/17 Ondansetron [Zofran] 4 mg PO TID PRN 09/13/17 10/13/17 Bisacodyl [Dulcolax] 10 mg RECTAL DAILY PRN 10/13/17 10/13/17 Ensure Clear 1 can PO PC-TID@,,10/13/17 10/13/17 Allergies Allergy/AdvReac Type Severity Reaction Status Date / Time codeine AdvReac Vomiting Verified 10/13/17 15:47 cortisone AdvReac Vomiting Verified 10/13/17 15:47 Review of Systems ROS Statement: Those systems with pertinent positive or pertinent negative responses have been documented in the HPI. ROS Other: All systems not noted in ROS Statement are negative. Limitations: ROS unobtainable due to patients medical condition Past Medical History Past Medical History: Heart Failure, CVA/TIA, Dementia, Diabetes Mellitus, Deep Vein Thrombosis (DVT), Hyperlipidemia, Hypertension, Memory Impairment, Osteoarthritis (OA), Pneumonia, Pulmonary Embolus (PE), Renal Disease, Seizure Disorder, Vascular Disorder Additional Past Medical History / Comment(s): VOMITING, USES NAOMIE LIFT, Cardiomegaly, IDDM type II, DVT R leg and PE R lung, CKD stage III, arthritis bilateral hands and knees, bronchitis, last seizure about 2 years ago per pt, PVD, poor circulation R leg, falls, TIA, osteoporosis, past bilateral ankle fractures with surgery on R ankle, past cellulitis bilateral lower legs. History of Any Multi-Drug Resistant Organisms: None Reported Past Surgical History: Cholecystectomy, Hysterectomy, Orthopedic Surgery, Tonsillectomy Additional Past Surgical History / Comment(s): cataract removal bilateral with lens implants, orif rt elbow, R ankle sx has plate and screws, colonoscopy. Past Anesthesia/Blood Transfusion Reactions: Previous Problems w/ Anesthesia Additional Past Anesthesia/Blood Transfusion Reaction / Comment(s): per past hx pt stated, " They gave me aa and abx too close together and I almost " Smoking Status: Never smoker - Past Family History Father History Unknown: Yes Additional Family Medical History / Comment(s): Pt doesn't know father past medical history but states he lived to be 92 yrs old. Mother History Unknown: Yes Family Medical History: No Reported History Additional Family Medical History / Comment(s): Mother was healthy and lived to be 84 yrs old. General Exam Limitations: altered mental status, physical limitation General appearance: alert, other (Patient is alert lying in bed. Patient has limited ability to follow commands. Patient is able to state her name however does not provide further information.) Head exam: Present: atraumatic Eye exam: Present: normal appearance, PERRL ENT exam: Present: normal oropharynx Neck exam: Present: normal inspection Respiratory exam: Present: normal lung sounds bilaterally Cardiovascular Exam: Present: regular rate, normal rhythm GI/Abdominal exam: Present: soft. Absent: tenderness Extremities exam: Present: pedal edema (+1 bilateral). Absent: calf tenderness Neurological exam: Present: alert, altered Expanded Neurological exam: Present: protecting the airway, other (Limited exam. Patient does move all extremities without flaccid paralysis. Difficulty lifting both arms and legs off the bed. Unable to assess for sensory.) Patient oriented to: Present: person. Absent: place, time Eye Response: (4) open spontaneously Motor Response: (6) obeys commands Verbal Response: (3) inappropriate words Psychiatric exam: Present: other (Limited communication) Skin exam: Present: normal color. Absent: rash Course Vital Signs 10/13/17 10/13/17 15:28 18:22 Temperature 97.8 F Pulse Rate 88 88 Respiratory 18 18 Rate Blood Pressure 126/63 160/66 O2 Sat by Pulse 94 L 99 Oximetry - Reevaluation(s) Reevaluation #1: 10/13/17 17:11 Patient does meet sepsis criteria diagnosed at 1711. Blood culture and lactic acid have been ordered. IV antibiotics will be ordered. IV fluid bolus has been ordered. EKG Findings - EKG Comments: EKG Findings:: Normal sinus rhythm 94. ND 160. QRS 140. QTc 378. QTC 472. Amoxil axis. Nonspecific intraventricular block. No acute ST change. Medical Decision Making - Medical Decision Making Patient reevaluated and resting comfortably in bed. Patient updated. Case was discussed in detail with Dr. barbosa, who will admit covering for Dr. Fisher, who admits for Dr. Jones. - Lab Data Result diagrams: 10/13/17 16:00 10/13/17 16:00 Lab Results 10/13/17 10/13/17 10/13/17 Range/Units 16:00 16:00 16:00 WBC 16.7 H (3.8-10.6) k/uL RBC 4.60 (3.80-5.40) m/uL Hgb 13.9 (11.4-16.0) gm/dL Hct 40.8 (34.0-46.0) % MCV 88.6 (80.0-100.0) fL MCH 30.3 (25.0-35.0) pg MCHC 34.2 (31.0-37.0) g/dL RDW 14.7 (11.5-15.5) % Plt Count 335 (150-450) k/uL Neutrophils % 89 % Lymphocytes % 4 % Monocytes % 5 % Eosinophils % 1 % Basophils % 0 % Neutrophils # 14.8 H (1.3-7.7) k/uL Lymphocytes # 0.7 L (1.0-4.8) k/uL Monocytes # 0.9 (0-1.0) k/uL Eosinophils # 0.1 (0-0.7) k/uL Basophils # 0.0 (0-0.2) k/uL PT (9.0-12.0) sec INR (<1.2) APTT (22.0-30.0) sec Sodium 131 L (137-145) mmol/L Potassium 6.8 H* (3.5-5.1) mmol/L Chloride 87 L (98-107) mmol/L Carbon Dioxide 25 (22-30) mmol/L Anion Gap 19 mmol/L BUN 114 H* (7-17) mg/dL Creatinine 2.80 H (0.52-1.04) mg/dL Est GFR (CKD-EPI)AfAm 18 (>60 ml/min/1.73 sqM) Est GFR (CKD-EPI)NonAf 16 (>60 ml/min/1.73 sqM) Glucose 424 H (74-99) mg/dL Plasma Lactic Acid Raymond (0.7-2.0) mmol/L Calcium 8.9 (8.4-10.2) mg/dL Total Bilirubin 0.7 (0.2-1.3) mg/dL AST 214 H (14-36) U/L ALT 112 H (9-52) U/L Alkaline Phosphatase 159 H (38-126) U/L Total Creatine Kinase (30-135) U/L CK-MB (CK-2) (0.0-2.4) ng/mL CK-MB (CK-2) Rel Index Troponin I (0.000-0.034) ng/mL Total Protein 6.7 (6.3-8.2) g/dL Albumin 3.4 L (3.5-5.0) g/dL Urine Color Light Red Urine Appearance Cloudy H (Clear) Urine pH 8.0 (5.0-8.0) Ur Specific [place] 1.010 (1.001-1.035) Urine Protein 1+ H (Negative) Urine Glucose (UA) Negative (Negative) Urine Ketones Negative (Negative) Urine Blood Small H (Negative) Urine Nitrite Negative (Negative) Urine Bilirubin Negative (Negative) Urine Urobilinogen <2.0 (<2.0) mg/dL Ur Leukocyte Esterase Moderate H (Negative) Urine RBC 2 (0-5) /hpf Urine WBC 33 H (0-5) /hpf Ur Squamous Epith Cells <1 (0-4) /hpf Urine Bacteria Many H (None) /hpf Urine Mucus Rare H (None) /hpf Urine Yeast (Budding) Occasional H (None) /hpf Urine Opiates Screen Not Detected (NotDetected) Ur Oxycodone Screen Not Detected (NotDetected) Urine Methadone Screen Not Detected (NotDetected) Ur Propoxyphene Screen Not Detected (NotDetected) Ur Barbiturates Screen Detected H (NotDetected) Phenytoin ug/mL Carbamazepine ug/mL U Tricyclic Antidepress Not Detected (NotDetected) Ur Phencyclidine Scrn Not Detected (NotDetected) Ur Amphetamines Screen Not Detected (NotDetected) U Methamphetamines Scrn Not Detected (NotDetected) U Benzodiazepines Scrn Not Detected (NotDetected) Urine Cocaine Screen Not Detected (NotDetected) U Marijuana (THC) Screen Not Detected (NotDetected) 10/13/17 10/13/17 10/13/17 Range/Units 16:49 16:49 16:49 WBC (3.8-10.6) k/uL RBC (3.80-5.40) m/uL Hgb (11.4-16.0) gm/dL Hct (34.0-46.0) % MCV (80.0-100.0) fL MCH (25.0-35.0) pg MCHC (31.0-37.0) g/dL RDW (11.5-15.5) % Plt Count (150-450) k/uL Neutrophils % % Lymphocytes % % Monocytes % % Eosinophils % % Basophils % % Neutrophils # (1.3-7.7) k/uL Lymphocytes # (1.0-4.8) k/uL Monocytes # (0-1.0) k/uL Eosinophils # (0-0.7) k/uL Basophils # (0-0.2) k/uL PT 22.3 H (9.0-12.0) sec INR 2.5 H (<1.2) APTT 39.9 H (22.0-30.0) sec Sodium (137-145) mmol/L Potassium (3.5-5.1) mmol/L Chloride (98-107) mmol/L Carbon Dioxide (22-30) mmol/L Anion Gap mmol/L BUN (7-17) mg/dL Creatinine (0.52-1.04) mg/dL Est GFR (CKD-EPI)AfAm (>60 ml/min/1.73 sqM) Est GFR (CKD-EPI)NonAf (>60 ml/min/1.73 sqM) Glucose (74-99) mg/dL Plasma Lactic Acid Raymond (0.7-2.0) mmol/L Calcium (8.4-10.2) mg/dL Total Bilirubin (0.2-1.3) mg/dL AST (14-36) U/L ALT (9-52) U/L Alkaline Phosphatase (38-126) U/L Total Creatine Kinase 147 H (30-135) U/L CK-MB (CK-2) 1.1 (0.0-2.4) ng/mL CK-MB (CK-2) Rel Index 0.7 Troponin I 0.017 (0.000-0.034) ng/mL Total Protein (6.3-8.2) g/dL Albumin (3.5-5.0) g/dL Urine Color Urine Appearance (Clear) Urine pH (5.0-8.0) Ur Specific [place] (1.001-1.035) Urine Protein (Negative) Urine Glucose (UA) (Negative) Urine Ketones (Negative) Urine Blood (Negative) Urine Nitrite (Negative) Urine Bilirubin (Negative) Urine Urobilinogen (<2.0) mg/dL Ur Leukocyte Esterase (Negative) Urine RBC (0-5) /hpf Urine WBC (0-5) /hpf Ur Squamous Epith Cells (0-4) /hpf Urine Bacteria (None) /hpf Urine Mucus (None) /hpf Urine Yeast (Budding) (None) /hpf Urine Opiates Screen (NotDetected) Ur Oxycodone Screen (NotDetected) Urine Methadone Screen (NotDetected) Ur Propoxyphene Screen (NotDetected) Ur Barbiturates Screen (NotDetected) Phenytoin 10.3 ug/mL Carbamazepine 9.3 ug/mL U Tricyclic Antidepress (NotDetected) Ur Phencyclidine Scrn (NotDetected) Ur Amphetamines Screen (NotDetected) U Methamphetamines Scrn (NotDetected) U Benzodiazepines Scrn (NotDetected) Urine Cocaine Screen (NotDetected) U Marijuana (THC) Screen (NotDetected) 10/13/17 Range/Units 16:49 WBC (3.8-10.6) k/uL RBC (3.80-5.40) m/uL Hgb (11.4-16.0) gm/dL Hct (34.0-46.0) % MCV (80.0-100.0) fL MCH (25.0-35.0) pg MCHC (31.0-37.0) g/dL RDW (11.5-15.5) % Plt Count (150-450) k/uL Neutrophils % % Lymphocytes % % Monocytes % % Eosinophils % % Basophils % % Neutrophils # (1.3-7.7) k/uL Lymphocytes # (1.0-4.8) k/uL Monocytes # (0-1.0) k/uL Eosinophils # (0-0.7) k/uL Basophils # (0-0.2) k/uL PT (9.0-12.0) sec INR (<1.2) APTT (22.0-30.0) sec Sodium (137-145) mmol/L Potassium (3.5-5.1) mmol/L Chloride (98-107) mmol/L Carbon Dioxide (22-30) mmol/L Anion Gap mmol/L BUN (7-17) mg/dL Creatinine (0.52-1.04) mg/dL Est GFR (CKD-EPI)AfAm (>60 ml/min/1.73 sqM) Est GFR (CKD-EPI)NonAf (>60 ml/min/1.73 sqM) Glucose (74-99) mg/dL Plasma Lactic Acid Raymond 2.3 H* (0.7-2.0) mmol/L Calcium (8.4-10.2) mg/dL Total Bilirubin (0.2-1.3) mg/dL AST (14-36) U/L ALT (9-52) U/L Alkaline Phosphatase (38-126) U/L Total Creatine Kinase (30-135) U/L CK-MB (CK-2) (0.0-2.4) ng/mL CK-MB (CK-2) Rel Index Troponin I (0.000-0.034) ng/mL Total Protein (6.3-8.2) g/dL Albumin (3.5-5.0) g/dL Urine Color Urine Appearance (Clear) Urine pH (5.0-8.0) Ur Specific [place] (1.001-1.035) Urine Protein (Negative) Urine Glucose (UA) (Negative) Urine Ketones (Negative) Urine Blood (Negative) Urine Nitrite (Negative) Urine Bilirubin (Negative) Urine Urobilinogen (<2.0) mg/dL Ur Leukocyte Esterase (Negative) Urine RBC (0-5) /hpf Urine WBC (0-5) /hpf Ur Squamous Epith Cells (0-4) /hpf Urine Bacteria (None) /hpf Urine Mucus (None) /hpf Urine Yeast (Budding) (None) /hpf Urine Opiates Screen (NotDetected) Ur Oxycodone Screen (NotDetected) Urine Methadone Screen (NotDetected) Ur Propoxyphene Screen (NotDetected) Ur Barbiturates Screen (NotDetected) Phenytoin ug/mL Carbamazepine ug/mL U Tricyclic Antidepress (NotDetected) Ur Phencyclidine Scrn (NotDetected) Ur Amphetamines Screen (NotDetected) U Methamphetamines Scrn (NotDetected) U Benzodiazepines Scrn (NotDetected) Urine Cocaine Screen (NotDetected) U Marijuana (THC) Screen (NotDetected) - Radiology Data Radiology results: report reviewed (Computed tomography scan the brain shows atrophy. Otherwise no acute abnormality.), image reviewed (Chest x-ray shows poor inspiration and minimal congestion) Critical Care Time Critical Care Time: Yes Total Critical Care Time: 33 Disposition Clinical Impression: Acute renal failure (ARF), Hyperkalemia, Urinary tract infection, Severe sepsis Disposition: ADMITTED IP TO THIS [facility] Condition: Serious Referrals: Sam Jones MD [Primary Care Provider] - 1-2 days Decision Time: 18:30
[2017-10-13 16:17] LABS: Appearance,Urine Cloudy (Clear); Bacteria,Urine Many /hpf; Bilirubin,Urine Negative (Negative); Blood,Urine Small (Negative); Budding Yeast,Urine Occasional /hpf; Color,Urine Light Red; Glucose,Urine (UA) Negative (Negative); Ketones,Urine Negative (Negative); Leukocyte Esterase,Urine Moderate (Negative); Mucus,Urine Rare /hpf; Nitrite,Urine Negative (Negative); Protein,Urine 1+ (Negative); RBC,Urine 2 /hpf (0-5); Squamous Epithelial Cell,Urine <1 /hpf (0-4); Urobilinogen,Urine <2.0 mg/dL (<2.0); WBC,Urine 33 /hpf (0-5)
[2017-10-13 16:24] LABS: Albumin 3.4 g/dL (3.5-5.0); Calcium 8.9 mg/dL (8.4-10.2); Total Bilirubin 0.7 mg/dL (0.2-1.3); Total Protein 6.7 g/dL (6.3-8.2)
[2017-10-13 16:27] LABS: Amphetamine Screen,Urine Not Detected (NotDetected); Basophils % (A) 0 %; Benzodiazepines Screen,Urine Not Detected (NotDetected); Cocaine Screen,Urine Not Detected (NotDetected); Eosinophils # (A) 0.1 k/uL (0-0.7); Eosinophils % (A) 1 %; HCT 40.8 % (34.0-46.0); HGB 13.9 gm/dL (11.4-16.0); Lymphocytes # (A) 0.7 k/uL (1.0-4.8); Lymphocytes % (A) 4 %; MCH 30.3 pg (25.0-35.0); MCHC 34.2 g/dL (31.0-37.0); MCV 88.6 fL (80.0-100.0); Mean Platelet Volume 7.9; Methadone Screen, Urine Not Detected (NotDetected); Monocytes # (A) 0.9 k/uL (0-1.0); Monocytes % (A) 5 %; Neutrophils # (A) 14.8 k/uL (1.3-7.7); Neutrophils % (A) 89 %; Opiate Screen,Urine Not Detected (NotDetected); Phencyclidine Screen,Urine Not Detected (NotDetected); Platelet Count 335 k/uL (150-450); RDW 14.7 % (11.5-15.5); Tricyclic Antidepressant,Urine Not Detected (NotDetected); Urn Cannabinoid Scrn Not Detected (NotDetected); WBC 16.7 k/uL (3.8-10.6)
[2017-10-13 16:28] LABS: Barbiturate Screen,Urine Detected (NotDetected); Oxycodone Screen, Urine Not Detected (NotDetected)
[2017-10-13 16:32] LABS: Potassium 6.8 mmol/L (3.5-5.1)
[2017-10-13] MEDS ORDERED: SODIUM CHLORIDE 0.9% 250 ML IV STA (16:35)
[2017-10-13] MEDS ORDERED: SODIUM CHLORIDE 0.9% 1,000 ML IV STA ×2 (16:35)
[2017-10-13] MEDS ORDERED: SODIUM BICARB 8.4% 50 ML SYR (1 MEQ/ML) IV ONE (16:37)
[2017-10-13] MEDS ORDERED: CALCIUM CHLORIDE 1,000 MG in SODIUM CHLORIDE 0.9% 100 ML IVPB STA (16:45)
--- NOTE | 2017-10-13 16:49 | CT ---
EXAMINATION TYPE: CT brain wo con DATE OF EXAM: 10/13/2017 COMPARISON: 08/24/2017 HISTORY: AMS CT DLP: 875.8 mGycm Automated exposure control for dose reduction was used. FINDINGS: There is cerebral cortical atrophy. There is no mass effect nor midline shift. There is no sign of in tracranial hemorrhage. The calvarium is intact. IMPRESSION: CEREBRAL ATROPHY. NO ACUTE INTRACRANIAL ABNORMALITY. NO CHANGE.
--- NOTE | 2017-10-13 16:51 | XR ---
EXAMINATION TYPE: XR chest 2V DATE OF EXAM: 10/13/2017 COMPARISON: 05/19/2015 HISTORY: Hypertension heart failure TECHNIQUE: Frontal and lateral views of the chest are obtained. FINDINGS: There is coarsening of interstitial markings. There is poor aspiration. There is mild pulm onary congestion. Bones are osteopenic. There is no evidence of pleural effusion. IMPRESSION: Poor inspiration and minimal congestion. No overt heart failure. Inspiration is decrease d compared to old exam.
[2017-10-13] MEDS ORDERED: LEVOFLOXACIN 750MG-D5W PMX 750 MG in DEXTROSE/WATER 1 150ML.BAG IVPB STA (17:12)
[2017-10-13 17:19] LABS: INR 2.5 (<1.2); Partial Thromboplastin Time 39.9 sec (22.0-30.0); Prothrombin Time 22.3 sec (9.0-12.0)
[2017-10-13 17:34] LABS: Carbamazepine (Tegretol) 9.3 ug/mL; Phenytoin (Dilantin) 10.3 ug/mL
[2017-10-13 17:41] LABS: Creatine Kinase MB 1.1 ng/mL (0.0-2.4); Troponin I 0.017 ng/mL (0.000-0.034)
[2017-10-13] MEDS ORDERED: NALOXONE 0.4 MG/ML 1 ML VIAL IV PRN (18:40)
[2017-10-13 19:28] LABS: Glucose,Whole Blood 296 mg/dL (75-99)
[2017-10-13] MEDS ORDERED: BISMUTH SUBSALICYLATE 4,192 MG/240 ML BOTTLE PO PRN (20:38)
[2017-10-13] MEDS ORDERED: BISACODYL 10 MG SUPP RECTAL PRN (20:38)
[2017-10-13] MEDS ORDERED: ONDANSETRON 4 MG TAB PO PRN (20:38)
[2017-10-13] MEDS ORDERED: guaiFENesin SYRUP 100MG/5ML 200 MG/10 ML CUP PO PRN (20:38)
[2017-10-13] MEDS ORDERED: ACETAMINOPHEN TAB 325 MG TAB PO PRN (20:38)
[2017-10-13 20:51] LABS: Glucose,Whole Blood 280 mg/dL (75-99)
[2017-10-13] MEDS: INSULIN DETEMIR 100 UNIT/ML 10 ML VIAL SQ SCH (21:34)
[2017-10-13] MEDS: ATORVASTATIN 80 MG TAB PO SCH (21:34)
[2017-10-13] MEDS: PHENYTOIN SODIUM EXTENDED 100 MG CAP PO SCH (21:34)
[2017-10-13] MEDS: carBAMazepine 200 MG TAB PO SCH (21:34)
[2017-10-13] MEDS: DONEPEZIL 10 MG TAB PO SCH (21:35)
[2017-10-13] MEDS ORDERED: NON-FORMULARY DRUG (Ensure Clear 1 CAN) PO SCH (22:00)
--- NOTE | 2017-10-13 22:00 | HP ---
HISTORY AND PHYSICAL CHIEF COMPLAINT: Change in mental status. HISTORY OF PRESENT ILLNESS: This 72-year-old woman with a past medical history of multiple medical problems, including CHF, history of CVA, TIA, dementia, diabetes mellitus, history of DVT, hypertension, hyperlipidemia, history of DJD, being followed by Dr. Valdo Graves in the outpatient setting, is currently in [facility] under the care of Dr. Jones. The patient has become progressively unresponsive and showed some change in mental status, diminished p.o. intake, and the patient was taken to [facility] and admitted for further evaluation and treatment. The patient was in the emergency room about 2 days ago with similar complaints, but the patient was taken back because of the recurrence of symptoms in the ECF. Currently the patient appears to be dehydrated. The patient has significant hyperkalemia with potassium 6.8. Creatinine is 2.8. The baseline creatinine was around 0.91, indicating severe acute renal failure. Lactic acid is also elevated. Patient had features of UTI as well. The patient is unable to provide a coherent history. Most of the history is taken my discussion with staff as well review of the chart at this time. PAST MEDICAL HISTORY: 1. History of CHF. 2. History of CVA, TIA. 3. History of dementia. 4. History of diabetes mellitus, type 2. 5. History of DVT. 6. History of hypertension. 7. Hyperlipidemia. 8. History of memory impairment. 9. History of DJD. 10.History of pulmonary embolism. 11.History of seizure disorder. HOME MEDICATIONS: Home medications are reviewed, which include: 1. Ammonium lactate. 2. Tylenol. 3. Zofran 4 mg t.i.d. p.r.n. 4. Claritin 10 mg daily p.r.n. 5. Robitussin 200 mg p.o. q.4 p.r.n. 6. Dulcolax. 7. Pepto-Bismol 525 mg p.o. q.4 p.r.n. 8. NovoLog FlexPen 5 units before meals t.i.d. 9. Ventolin 2.5 q.6 p.r.n. 10.Ensure Clear 1 can p.o. t.i.d. 11.Tegretol 400 mg p.o. t.i.d. 12.K-Dur 10 mEq p.o. b.i.d. 13.Dilantin 200 mg p.o. b.i.d. 14.Aricept 10 mg p.o. b.i.d. 15.Victoza 1.2 subcutaneously daily. 16.Prilosec 40 mg p.o. daily. 17.Namenda XR 28 mg p.o. daily. 18.Zaroxolyn 2.5 mg p.o. daily. 19.Levemir 35 units subcutaneously at bedtime. 20.Lasix 40 mg p.r.n. 21.Coumadin 1.5 mg daily and 2 mg p.o. daily. 22.Actos 30 mg p.o. daily. 23.Vitamin D3 5000 daily. 24.Vitamin D3 one tablet p.o. daily. 25.Lipitor 80 mg p.o. at bedtime. ALLERGIES: CODEINE and CORTISONE. Family history, social history, review of systems could not be taken; the patient is confused, mumbling. Arousable. Pulse 88, blood pressure 116/56, respirations 16, temperature 97 degrees, pulse ox 98% on 2 L. HEENT: Conjunctivae normal. Oral mucosa dry. NECK: Jugular venous pulses are collapsed. CARDIOVASCULAR SYSTEM: S1, S2 muffled. No S3. No S4. RESPIRATORY SYSTEM: Breath sounds diminished at the bases. A few scattered rhonchi and crackles. ABDOMEN: Soft. Mild diffuse distention present. LEGS: Bilateral leg edema present. Pulses are diminished bilaterally. NERVOUS SYSTEM: Higher functions as mentioned earlier. Patient unable to cooperate with a full neurologic exam. Diffusely weak. SKIN: No ulcer, rash, bleeding. LYMPHATICS: No lymph node palpable in neck, axillae or groin. JOINTS: No active deforming arthropathy. LABS: WBC 16.6, hemoglobin 13.9. INR is 2.5. Sodium 131, potassium 6.8, creatinine 2.80. Other labs are noted. ASSESSMENT: 1. Acute renal failure with severe dehydration with prerenal renal failure and acute tubular necrosis, possibly cardiorenal syndrome. 2. Urinary tract infection with possible sepsis. 3. Increased plasma lactic acid. 4. Hyperkalemia. 5. Hyponatremia. 6. Increased AST, ALT, possibly secondary to sepsis. 7. Increased white count. 8. History of congestive heart failure. 9. History of cerebrovascular accident, transient ischemic attack. 10.Dementia. 11.Diabetes mellitus, type 2. 12.History of deep venous thrombosis. 13.Hypertension. 14.Hyperlipidemia. 15.History of pulmonary embolus. 16.History of seizure disorder. 17.History of chronic kidney disease, stage III, baseline. 18.History of transient ischemic attack. 19.History of degenerative joint disease. 20.FULL CODE. RECOMMENDATIONS AND DISCUSSION: In this 72-year-old woman who presented with multiple complex medical issues, we will monitor the patient closely, continue the current medications, continue with symptomatic treatment. Will initiate cautious IV hydration. Obtain cardiology and nephrology consultations. Otherwise, broad-spectrum IV antibiotics. Cultures will be obtained. Will resume the home medications. Avoid nephrotoxic medications. Overall prognosis is extremely guarded because of multiple complex medical issues, as listed above. Further recommendations to follow. A copy of this dictation is being forwarded to Dr. Graves, who is the primary physician. PETE / YNES: [id number] /
[2017-10-13 22:13] LABS: Potassium 4.3 mmol/L (3.5-5.1)
[2017-10-13] MEDS: AMMONIUM LACTATE 12% LOTION 225 GM BTL TOPICAL SCH (22:40)
[2017-10-14 05:56] LABS: Glucose,Whole Blood 112 mg/dL (75-99)
[2017-10-14] MEDS ORDERED: NON-FORMULARY DRUG (Omeprazole 40 MG) PO SCH (06:00)
[2017-10-14 07:02] LABS: Basophils % (A) 0 %; Eosinophils # (A) 0.1 k/uL (0-0.7); Eosinophils % (A) 1 %; HCT 38.6 % (34.0-46.0); HGB 12.5 gm/dL (11.4-16.0); Lymphocytes # (A) 0.4 k/uL (1.0-4.8); Lymphocytes % (A) 4 %; MCH 30.2 pg (25.0-35.0); MCHC 32.5 g/dL (31.0-37.0); Mean Platelet Volume 7.3; Monocytes # (A) 0.6 k/uL (0-1.0); Monocytes % (A) 6 %; Neutrophils # (A) 9.2 k/uL (1.3-7.7); Neutrophils % (A) 88 %; Platelet Count 287 k/uL (150-450); RBC 4.15 m/uL (3.80-5.40); RDW 14.5 % (11.5-15.5); WBC 10.5 k/uL (3.8-10.6)
[2017-10-14 07:08] LABS: INR 2.7 (<1.2); Prothrombin Time 24.5 sec (9.0-12.0)
[2017-10-14 07:10] LABS: Albumin 2.6 g/dL (3.5-5.0); Calcium 8.5 mg/dL (8.4-10.2); Magnesium 2.4 mg/dL (1.6-2.3); Phosphorus 4.4 mg/dL (2.5-4.5); Potassium 3.7 mmol/L (3.5-5.1); Total Bilirubin 0.5 mg/dL (0.2-1.3); Total Protein 5.6 g/dL (6.3-8.2)
--- NOTE | 2017-10-14 07:49 | CONS ---
CONSULTATION REASON FOR CONSULT: Renal failure. HISTORY OF PRESENT ILLNESS: Patient is a 72-year-old female who was admitted to the hospital with mental status changes. The patient had progressive decrease in her mentation. She does have baseline dementia and resides at an extended care facility. Patient was found to be hyperkalemic on her initial labs with potassium of 6.8, serum creatinine was 2.8 mg/dL. Previous creatinine on 09/13/2017 was 0.9. Blood pressure has been slightly on the lower side; lowest was 116/56. The patient is currently maintained on IV fluids. Wylie catheter was placed and patient had 1 L of urine obtained on initial Wylie catheter placement. She currently has good urine output. Patient is maintained on normal saline. I do not see any nonsteroidal anti-inflammatory agents on her med list prior to the admission. There are no AMBIKA inhibitors as well. PAST MEDICAL HISTORY: Hypertension, dementia, history of DVT, osteoarthritis, history of CVA, TIA, history of CHF, ejection fraction not known, type 2 diabetes, history of PE, seizure disorder. MEDICATIONS: Medications at home prior to admission included Tegretol, inhalers, insulin, Claritin, Zofran, Tylenol, Dilantin, Victoza, Prilosec, Namenda, Zaroxolyn, Lasix Coumadin, vitamin D3, Actos, Lipitor, Ensure. ALLERGIES: Allergies include CODEINE and CORTISONE. REVIEW OF SYSTEMS: As per HPI. Other systems negative. SOCIAL HISTORY: Negative for smoking, drug abuse or alcohol abuse. Patient resides at an extended care facility. PHYSICAL EXAMINATION: On examination this morning, patient is comfortable, awake. She is arousable. She answered simple questions. Otherwise, she is not able to carry on a conversation. Blood pressure is 120/64, heart rate 88 per minute. Patient is afebrile. EXAMINATION OF THE HEART: S1, S2. EXAMINATION OF THE LUNGS: Bilateral breath sounds are heard. Abdomen is soft, nontender. Examination of the lower extremities shows no evidence of edema. FRUIT CANNER exam is grossly intact. Labs show sodium 136, potassium 4.3, chloride 97, plasma lactic acid was 2.3. Initial potassium was 6.8 mEq/L. UA shows 33 WBCs and leukocyte esterase moderate, protein, 1+, small blood was noted. ASSESSMENT: 1. Acute kidney injury, mainly obstructive uropathy and a component of hypovolemia as well. Currently, the patient has an indwelling Wylie catheter with good urine output. She is also maintained on IV fluids, which I will continue for now. There are no nephrotoxic agents on board. 2. Urinary tract infection maintained on Levaquin. Urine culture is pending. 3. Baseline dementia. 4. History of deep venous thrombosis and pulmonary embolism, maintained on Coumadin. 5. Nutritional vitamin D deficiency, currently on oral vitamin D supplementation. PLAN: Continue IV fluids. Check labs today as well as in a.m. and continue with the Wylie catheter for now. Thank you for this consultation. We will continue to follow the patient with you during her hospitalization. MMODL / IJN: [id number] /
[2017-10-14] MEDS: ALBUTEROL NEBULIZED 2.5 MG/3 ML INHALATION PRN ×2 (08:05→11:54)
[2017-10-14] MEDS: SODIUM CHLORIDE 0.9% 1,000 ML IV SCH ×2 (09:13→09:19)
[2017-10-14] MEDS: NON-FORMULARY DRUG (Liraglutide [Victoza 3-Pak] 1.2 MG) SQ SCH (09:14)
[2017-10-14] MEDS: PANTOPRAZOLE 40 MG/10 ML VIAL IV SCH (09:16)
[2017-10-14] MEDS: MEMANTINE 10 MG TAB PO SCH ×2 (09:16→20:07)
[2017-10-14] MEDS: carBAMazepine 200 MG TAB PO SCH ×3 (09:17→20:07)
[2017-10-14] MEDS: PHENYTOIN SODIUM EXTENDED 100 MG CAP PO SCH ×2 (09:17→20:07)
[2017-10-14] MEDS: DONEPEZIL 10 MG TAB PO SCH ×2 (09:18→20:07)
[2017-10-14] MEDS: CALCIUM CARB-VIT D 500MG-200UN 1 EACH TAB PO SCH (09:18)
[2017-10-14] MEDS: CHOLECALCIFEROL 1,000 UNIT TAB PO SCH (09:18)
[2017-10-14 11:18] LABS: Glucose,Whole Blood 98 mg/dL (75-99)
--- NOTE | 2017-10-14 11:44 | CONS ---
CONSULTATION Antonietta Tenorio is a 72-year-old female with multiple medical problems including CVA, dementia, diabetes, DVT, hypertension, dyslipidemia, who became progressively unresponsive and had mental status changes, found to be in acute renal failure with a potassium of 6.8 and creatinine of 2.8. PAST HISTORY: Past history was reviewed and is documented in the chart. MEDICATIONS: Medications were reviewed and is documented in the chart. ALLERGIES: Allergies to CODEINE. PHYSICAL EXAMINATION: On examination, her blood pressure is 120/64 mmHg, pulse rate in the 80s, afebrile. Breath sounds are reduced bilaterally. Heart sounds S1, S2 are normal. Extremities are warm. IMPRESSION: Patient with multiple medical problems with sinus tachycardia and acute renal failure with hyperkalemia. SUGGEST: From a cardiac standpoint, there is no further workup indicated at this point. She needs management of acute renal failure and hyperkalemia and other medical noncardiac issues. Blood pressure is well controlled. She may go to the medical floor. Cardiac re-evaluation only if clinically indicated for cardiac problem. MMODL / IJN: [id number] /
[2017-10-14] MEDS: PIPERACILLIN-TAZOBACTAM 3.375 GM in DEXTROSE/WATER 1 50ML.BAG IVPB SCH ×2 (15:17→21:39)
[2017-10-14 16:59] LABS: Glucose,Whole Blood 81 mg/dL (75-99)
--- NOTE | 2017-10-14 17:14 | PN ---
PROGRESS NOTE DATE OF SERVICE: 10/14/2017 This 72-year-old woman who was admitted with change in mental status also had acute renal failure. The patient was given IV fluids for dehydration. The sensorium has slightly improved. Patient continues to be confused. She also had a component of obstructive uropathy. After putting the catheter, the patient is draining urine well. Creatinine has improved from 2.8 to 1.690 and INR is 2.7. LFTs are still elevated. The patient is on broad-spectrum IV antibiotics also. The cultures are pending at this time. Past medical history reviewed. Review of systems could not be taken. The patient continues to be confused. PHYSICAL EXAMINATION: Pulse 85, blood pressure 126/55, respiration 18, temperature 96.5, pulse ox 99% on 2 L. HEENT: Conjunctivae normal. Oral mucosa dry. NECK: No jugular venous distention. No carotid bruit. No lymph node enlargement. CARDIOVASCULAR SYSTEM: S1, S2 muffled. RESPIRATORY SYSTEM: Breath sounds diminished at the bases. A few scattered rhonchi and crackles. ABDOMEN: Soft, non-tender. LEGS: No edema. No swelling. NERVOUS SYSTEM: Diffusely weak. LABS: WBC 10.5, hemoglobin 12.5, INR 2.7, sodium 140, potassium 3.7 and creatinine is 1.69. AST is 394 and ALT is 161. Albumin is 2.6. ASSESSMENT: 1. Acute renal failure with severe dehydration with prerenal renal failure as well as possibly postrenal obstruction as well with acute tubular necrosis; rule out cardiorenal syndrome. 2. Urinary tract infection with possible sepsis, present on admission. 3. Increased plasma lactic acid. 4. Hyperkalemia. 5. On Wylie catheter. 6. Hyponatremia. 7. Increased AST, ALT, possibly secondary to sepsis. 8. Increased white count. 9. History of congestive heart failure. 10.History of cerebrovascular accident, transient ischemic attack. 11.Dementia. 12.Diabetes mellitus, type 2. 13.History of deep venous thrombosis. 14.Hypertension. 15.Hyperlipidemia. 16.History of pulmonary embolism. 17.History of seizure disorder. 18.History of chronic kidney disease, stage III, baseline. 19.History of transient ischemic attack. 20.History of degenerative joint disease. 21.FULL CODE. RECOMMENDATIONS AND DISCUSSION: In this 72-year-old woman who presented with multiple complex medical issues, we will monitor the patient closely, continue the current medications, continue symptomatic treatment. Continue cautious hydration. I would also recommend broad-spectrum IV antibiotics. The patient is running fever. Infectious Disease has been consulted. Dr. Hawkins's input appreciated. Avoid nephrotoxic medications. Monitor PT/INR closely. I would also recommend for now indwelling Wylie catheter. Ultrasound of abdomen has been sought. The prognosis is guarded because of multiple complex medical issues. Further recommendations to follow. MMODL / IJN: [id number] /
[2017-10-14] MEDS: WARFARIN 1.5 MG TAB PO SCH (17:44)
[2017-10-14] MEDS: WARFARIN 2 MG TAB PO SCH (17:44)
[2017-10-14] MEDS: LEVOFLOXACIN 750MG-D5W PMX 750 MG in DEXTROSE/WATER 1 150ML.BAG IVPB SCH (19:59)
[2017-10-14] MEDS: ATORVASTATIN 80 MG TAB PO SCH (20:07)
[2017-10-14] MEDS: AMMONIUM LACTATE 12% LOTION 225 GM BTL TOPICAL SCH (20:19)
[2017-10-14 21:01] LABS: Glucose,Whole Blood 72 mg/dL (75-99)
[2017-10-14] MEDS: INSULIN DETEMIR 100 UNIT/ML 10 ML VIAL SQ SCH (21:20)
--- NOTE | 2017-10-14 23:25 | CONS ---
CONSULTATION DATE OF SERVICE: 10/14/2017 REASON FOR CONSULTATION: Bacteremia. HISTORY OF PRESENT ILLNESS: The patient is a 72-year-old female who was brought into the ER at [facility] yesterday afternoon for evaluation of her mental status changes. The patient apparently was brought into the ER with decreased responsiveness. The patient noticed to be a poor historian, unable to provide any history to the ER physician. On arrival to the ER, the patient did have a chest x-ray that was reported to be negative for any pneumonia. The patient has been afebrile to low-grade fever of 99. The patient did have elevated white count of 16.7. Her urine was positive with moderate leukocyte esterase, 33 WBC. The patient was started on Levaquin. Urine culture is currently pending with a blood culture positive with gram-negative bacilli; hence, Infectious Disease was consulted for further recommendation of antibiotic therapy. At the time of my evaluation, the patient remains to be very weak and lethargic, but now specifically says I want to be moved, but could not answer any of the questions asked. REVIEW OF SYSTEMS: Could not be reliably obtained. The positive points have been mentioned in the HPI. PAST MEDICAL HISTORY: Significant for heart failure, CAD, TIA and dementia, diabetes mellitus, DVT, hyperlipidemia, hypertension, osteoarthritis, pneumonia, pulmonary embolism, , seizure disorder. PAST SURGICAL HISTORY: Cholecystectomy, hysterectomy, orthopedic surgery, tonsillectomy, cataract removal, bilateral with lens implant, ORIF of the right elbow and right ankle fracture along with colonoscopy. SOCIAL HISTORY: No history of smoking, drinking or drug use. FAMILY HISTORY: Father of old age and mother of old age as well. ALLERGIES: To CODEINE and CORTISONE. MEDICATION: Include the patient is currently on: 1. Tylenol. 2. Ventolin. 3. Lipitor. 4. Dulcolax. 5. salicylate. 6. Os-Gerber D. 7. Tegretol. 8. Vitamin D3. 9. Aricept. 10.Robitussin. 11.Levemir. 12.Lac-Hydrin. 13.Levofloxacin. 14.Namenda. 15.Narcan. 16.Zofran. 17.Protonix and. 18.Dilantin and. 19.Coumadin. EXAMINATION: Her blood pressure is 127/58 with a pulse of 94, temperature 99.2 axillary. She is 98% on 2L nasal cannula. General description is an elderly female lying in bed in no distress with no tachypnea or accessory muscle of respiration use. HEENT shows no pallor or scleral icterus. Oral mucosa is dry. No pharyngeal compression. NECK: Trachea central. No thyromegaly. LUNGS: Unlabored breathing. Decreased breath sounds at the bases. No wheeze. HEART: S1, S2. Regular rate and rhythm. ABDOMEN: Soft. No organomegaly. EXTREMITIES: No edema of feet. BREAST: Mass palpable. NEUROLOGICALLY: Patient remains to be lethargic. Orientation could not be determined. Neck supple. LABS: Hemoglobin is 12.5, white count of 16.7 with a BUN of 94, creatinine 1.69. Electrolytes has been normal. Liver enzymes slightly elevated. Urine has been positive. Urine drug screen was positive for barbiturates. Chest x-ray report negative for any pneumonia. DIAGNOSTIC IMPRESSION: Patient admitted to the hospital with mental status changes, did have a low-grade fever with elevated white count of 16.7. Concern is likely for a urinary source for this bacteremia. However, underlying abdominal was source not excluded in a patient who did have evidence of elevated liver enzymes with concern for possible ascending cholangitis. The patient does have a history of a cholecystectomy. PLAN: 1. We will obtain a stat ultrasound of the abdomen. 2. We will add Zosyn 3.375 q.8h to Levaquin while waiting for the final ID of this pathogen. 3. IV fluids. 4. Will follow up on clinical condition as well as cultures to further adjust medication if needed. Thank you for this consultation. Will follow this patient along with you. MMODL / IJN: [id number] /
[2017-10-15] MEDS: PIPERACILLIN-TAZOBACTAM 3.375 GM in DEXTROSE/WATER 1 50ML.BAG IVPB SCH ×3 (03:55→21:44)
[2017-10-15] MEDS: SODIUM CHLORIDE 0.9% 1,000 ML IV SCH ×2 (03:55→21:31)
[2017-10-15 05:54] LABS: Glucose,Whole Blood 62 mg/dL (75-99)
[2017-10-15] MEDS: carBAMazepine 200 MG TAB PO SCH ×3 (06:07→20:41)
[2017-10-15 06:14] LABS: Glucose,Whole Blood 82 mg/dL (75-99)
[2017-10-15 06:38] LABS: Basophils % (A) 0 %; Eosinophils # (A) 0.2 k/uL (0-0.7); Eosinophils % (A) 2 %; HCT 33.5 % (34.0-46.0); HGB 10.9 gm/dL (11.4-16.0); Lymphocytes # (A) 0.5 k/uL (1.0-4.8); Lymphocytes % (A) 7 %; MCH 29.2 pg (25.0-35.0); MCHC 32.5 g/dL (31.0-37.0); MCV 89.8 fL (80.0-100.0); Monocytes # (A) 0.5 k/uL (0-1.0); Monocytes % (A) 6 %; Neutrophils # (A) 6.9 k/uL (1.3-7.7); Neutrophils % (A) 85 %; Platelet Count 351 k/uL (150-450); RBC 3.73 m/uL (3.80-5.40); RDW 14.6 % (11.5-15.5); WBC 8.1 k/uL (3.8-10.6)
[2017-10-15 06:39] LABS: INR 3.5 (<1.2); Prothrombin Time 31.3 sec (9.0-12.0)
[2017-10-15 06:49] LABS: Calcium 8.3 mg/dL (8.4-10.2)
[2017-10-15] MEDS ORDERED: Potassium Replacement Protocol 1 EACH MISC MISCELLANE PRN (06:51)
[2017-10-15] MEDS ORDERED: POTASSIUM CHLORIDE 10 MEQ in WATER FOR INJECTION 1 100ML.BAG IVPB STA (09:56)
--- NOTE | 2017-10-15 09:56 | P.PN ---
Subjective Patient is seen in follow-up for acute kidney injury. Renal function continues to improve with creatinine down to 1.2 today. She was noted to have urinary retention and has a Wylie catheter in place. Patient is not a very reliable historian with history of underlying dementia. She is noted to have Proteus bacteremia. She is maintained on IV antibiotics. Vital signs are stable. General: The patient appeared well nourished and normally developed. HEENT: Head exam is unremarkable. Neck is without jugular venous distension. LUNGS: Lungs are clear to auscultation and percussion. Breath sounds decreased. HEART: Rate and Rhythm are regular. First and second heart sounds normal. No murmurs, rubs or gallops. ABDOMEN: Soft. Tender to palpation. EXTREMITITES: No clubbing, cyanosis, or edema. Objective - Vital Signs Vital signs: Vital Signs Temp 97.8 F 10/15/17 04:00 Pulse 94 10/15/17 04:00 Resp 19 10/15/17 04:00 BP 142/64 10/15/17 04:00 Pulse Ox 96 10/15/17 04:00 Intake & Output 10/14/17 10/15/17 10/15/17 18:59 06:59 18:59 Intake Total 350 Output Total 800 600 Balance -800 -250 Weight 75.5 kg Intake: Oral 350 Output: Urine 800 600 Other: Voiding Method Indwelling Catheter Indwelling Catheter # Voids 1 - Labs CBC & Chem 7: 10/15/17 05:54 10/15/17 05:54 Labs: Abnormal Lab Results - Last 24 Hours (Table) 10/14/17 10/15/17 10/15/17 Range/Units 20:59 05:52 05:54 RBC 3.73 L (3.80-5.40) m/uL Hgb 10.9 L (11.4-16.0) gm/dL Hct 33.5 L (34.0-46.0) % Lymphocytes # 0.5 L (1.0-4.8) k/uL PT (9.0-12.0) sec INR (<1.2) Potassium (3.5-5.1) mmol/L Carbon Dioxide (22-30) mmol/L BUN (7-17) mg/dL Creatinine (0.52-1.04) mg/dL Glucose (74-99) mg/dL POC Glucose (mg/dL) 72 L 62 L (75-99) mg/dL Calcium (8.4-10.2) mg/dL 10/15/17 10/15/17 Range/Units 05:54 05:54 RBC (3.80-5.40) m/uL Hgb (11.4-16.0) gm/dL Hct (34.0-46.0) % Lymphocytes # (1.0-4.8) k/uL PT 31.3 H (9.0-12.0) sec INR 3.5 H (<1.2) Potassium 3.0 L* (3.5-5.1) mmol/L Carbon Dioxide 32 H (22-30) mmol/L BUN 69 H (7-17) mg/dL Creatinine 1.20 H (0.52-1.04) mg/dL Glucose 60 L (74-99) mg/dL POC Glucose (mg/dL) (75-99) mg/dL Calcium 8.3 L (8.4-10.2) mg/dL Microbiology - Last 24 Hours (Table) 10/13/17 16:49 Blood Culture Gram Stain - Preliminary Blood Blood Culture - Preliminary Proteus spec 10/13/17 16:49 Blood Culture - Final Blood 10/13/17 16:00 Urine Culture - Preliminary Urine,Catheterized Assessment and Plan Plan: Assessment: 1. Nonoliguric acute kidney injury secondary to urinary retention. Renal function improving with creatinine down to 1.2 today. 2. Proteus bacteremia source being UTI or possibly abdominal. Currently undergoing abdominal ultrasound. 3. Hypokalemia from poor oral intake. Magnesium replacement. 4. Urinary retention status post Wylie catheter placement. Plan: Continue with normal saline at 60 mL an hour. Maintain Wylie catheter. Follow-up abdominal ultrasound. Follow-up cultures. Replace potassium. 60 mEq today. Repeat electrolytes in the morning.
[2017-10-15] MEDS: POTASSIUM CHLORIDE 10 MEQ in WATER FOR INJECTION 1 100ML.BAG IVPB SCH ×5 (10:31→20:36)
[2017-10-15] MEDS: CALCIUM CARB-VIT D 500MG-200UN 1 EACH TAB PO SCH (10:32)
[2017-10-15] MEDS: DONEPEZIL 10 MG TAB PO SCH ×2 (10:33→20:40)
[2017-10-15] MEDS: PHENYTOIN SODIUM EXTENDED 100 MG CAP PO SCH ×2 (10:33→20:41)
[2017-10-15] MEDS: NON-FORMULARY DRUG (Liraglutide [Victoza 3-Pak] 1.2 MG) SQ SCH (10:33)
[2017-10-15] MEDS: CHOLECALCIFEROL 1,000 UNIT TAB PO SCH (10:33)
[2017-10-15] MEDS: MEMANTINE 10 MG TAB PO SCH ×2 (10:33→20:40)
[2017-10-15] MEDS: PANTOPRAZOLE 40 MG/10 ML VIAL IV SCH (10:34)
--- NOTE | 2017-10-15 10:47 | US ---
EXAMINATION TYPE: US abdomen complete DATE OF EXAM: 10/14/2017 COMPARISON: None CLINICAL HISTORY: 72-year-old female fever , elevated liver enzymes. Patient is on aspiration precaut ions and was scanned semi upright. Poor historian. GB removed per patient chart. TECHNIQUE: Multiple sonographic images of the abdomen are obtained. FINDINGS: EXAM MEASUREMENTS: Liver Length: 14.0 cm CBD: 0.4 cm CHD: 0.5 cm Spleen: 7.8 cm Right Kidney: 11.1 x 4.2 x 5.6 cm Left Kidney: 9.9 x 4.2 x 4.6 cm Traffic Signal Mechanic notes: Limited exam due to patient position and bowel gas Pancreas: Limited visualization of the pancreatic tail secondary to shadowing from bowel gas. Liver: Scanned through ribs due to patient position and bowel gas. There may be a slightly hypoechoi c appearance. Limited visualization of left lobe. Gallbladder: Surgically absent Evidence for sonographic Mclean's sign: neg CBD: wnl CBD: wnl Spleen: Limited visualization, portions seen appear wnl Right Kidney: Cortical thinning, without hydronephrosis Left Kidney: Cortical thinning without hydr onephrosis Upper IVC: Limited visualization due to bowel gas Abd Aorta: wnl IMPRESSION: 1. Limited intercostal views of the liver. The visualized portions have a somewhat hypoechoic appeara nce that could be technical but can also be seen in the setting of hepatitis. Clinically correlate. 2. Status post cholecystectomy. No biliary ductal dilatation.
[2017-10-15 11:54] LABS: Glucose,Whole Blood 144 mg/dL (75-99)
[2017-10-15] MEDS: ALBUTEROL NEBULIZED 2.5 MG/3 ML INHALATION PRN (12:14)
[2017-10-15] MEDS ORDERED: POTASSIUM CHLORIDE 10 MEQ in SODIUM CHLORIDE 0.9% 100 ML IVPB SCH (15:00)
[2017-10-15 16:40] LABS: Glucose,Whole Blood 226 mg/dL (75-99)
[2017-10-15] MEDS: WARFARIN 1.5 MG TAB PO SCH ×2 (17:24→17:30)
[2017-10-15] MEDS: WARFARIN 2 MG TAB PO SCH ×2 (17:24→17:30)
[2017-10-15] MEDS: LEVOFLOXACIN 750MG-D5W PMX 750 MG in DEXTROSE/WATER 1 150ML.BAG IVPB SCH (18:43)
[2017-10-15] MEDS: ATORVASTATIN 80 MG TAB PO SCH (20:39)
[2017-10-15] MEDS: AMMONIUM LACTATE 12% LOTION 225 GM BTL TOPICAL SCH (20:39)
[2017-10-15] MEDS: ACETAMINOPHEN TAB 500 MG TAB PO SCH (20:42)
[2017-10-15 20:54] LABS: Glucose,Whole Blood 413 mg/dL (75-99)
[2017-10-15] MEDS: INSULIN DETEMIR 100 UNIT/ML 10 ML VIAL SQ SCH (21:30)
[2017-10-15] MEDS: INSULIN ASPART 100 UNIT/ML 1 ML 10 ML VIAL SQ SCH (21:44)
--- NOTE | 2017-10-15 22:39 | PN ---
PROGRESS NOTE DATE OF SERVICE: 10/15/2017. INTERVAL HISTORY: This 72-year-old woman who was admitted with change in mental status also had acute renal failure. The patient also had UTI with sepsis also. Patient being closely monitored. Patient is confused. The patient is crying all the time. EXAM: Pulse is 94, blood pressure 170/58, respiration 18, temperature 98.7, pulse ox 97% on 2 L. HEENT is conjunctivae normal. Oral mucosa moist. Neck is no jugular venous distention. No carotid bruit. No lymph node enlargement. Cardiovascular system: S1, S2 muffled. Respirations: Breath sounds diminished in the bases. Bilateral scattered rhonchi and crackles. ABDOMEN: Soft, nontender. Legs are no edema, no swelling. Central nervous system: No focal deficits. LABS: Show potassium 3 and WBC 8, hemoglobin 10.9. ASSESSMENT: 1. Acute renal failure with severe dehydration with possible prerenal renal failure as well as postobstructive renal failure with acute tubular necrosis, rule out cardiorenal syndrome. 2. Urinary tract infection with sepsis present on admission. 3. Hypokalemia. 4. Increased plasma lactic acid. 5. Hyperkalemia on admission. 6. On Wylie catheter. 7. Hyponatremia. 8. Increased AST, ALT, possibly secondary to sepsis. 9. Increased WBC. 10.History of congestive heart failure. 11.History of cerebrovascular accident, transient ischemic attack. 12.Dementia. 13.Diabetes type 2. 14.History of deep vein thrombosis. 15.Hypertension. 16.History of hyperlipidemia. 17.History of pulmonary embolism. 18.History of seizure disorder. 19.History of chronic kidney disease stage 3. Baseline. 20.History of transient ischemic attack. 21.History of degenerative joint disease. 22.FULL CODE. RECOMMENDATIONS AND DISCUSSION: Recommend to continue current medications, management, monitoring and symptomatic treatment. Otherwise closely monitor. Guarded prognosis because of multiple complex medical issues. Further recommendations to follow. MMODL / IJN: [id number] /
--- NOTE | 2017-10-15 23:00 | PN ---
PROGRESS NOTE DATE OF SERVICE: 10/15/2017. REASON FOR FOLLOWUP: Gram-negative bacteremia. INTERVAL HISTORY: The patient is afebrile. She has been recently more awake and alert today; however, was admitted with unreliable history. No nausea, vomiting has been noticed or any diarrhea by the nursing staff. EXAMINATION: Blood pressure 119/68 with a pulse of 94, temperature 98.7. She is 98% on 2L nasal cannula. General description is an elderly female up in the bed in no distress. RESPIRATORY SYSTEM: Unlabored breathing. Clear to auscultation anteriorly. HEART: S1, S2. Regular rate and rhythm. ABDOMEN: Soft. No tenderness. LABS: Hemoglobin is 10, white count 8.1 with BUN of 69, creatinine 1.20. Blood culture with Proteus. Patient's urine with gram-negative bacilli. Ultrasound was negative for any structural abnormality. DIAGNOSTIC IMPRESSION AND PLAN: Patient with Proteus mirabilis bacteremia, source likely urinary. Ultrasound did not show any common bile duct dilatation and the patient is status post cholecystectomy. The patient at this time will continue with Zosyn, discontinue Levaquin with interaction with the Coumadin. Discharge antibiotic will depend on sensitivity of this pathogen. Continue with supportive care. MMODL / IJN: [id number] /
[2017-10-16] MEDS: PIPERACILLIN-TAZOBACTAM 3.375 GM in DEXTROSE/WATER 1 50ML.BAG IVPB SCH ×2 (05:15→12:23)
[2017-10-16 06:20] LABS: Glucose,Whole Blood 57 mg/dL (75-99)
[2017-10-16] MEDS: INSULIN ASPART 100 UNIT/ML 1 ML 10 ML VIAL SQ SCH ×4 (06:24→21:44)
[2017-10-16] MEDS: carBAMazepine 200 MG TAB PO SCH ×3 (06:25→20:20)
[2017-10-16 06:41] LABS: Glucose,Whole Blood 84 mg/dL (75-99)
[2017-10-16 07:03] LABS: Basophils % (A) 0 %; Eosinophils # (A) 0.1 k/uL (0-0.7); Eosinophils % (A) 2 %; HCT 35.8 % (34.0-46.0); HGB 11.5 gm/dL (11.4-16.0); Lymphocytes # (A) 0.6 k/uL (1.0-4.8); Lymphocytes % (A) 8 %; MCH 28.9 pg (25.0-35.0); MCHC 32.2 g/dL (31.0-37.0); MCV 89.6 fL (80.0-100.0); Monocytes # (A) 0.7 k/uL (0-1.0); Monocytes % (A) 9 %; Neutrophils % (A) 78 %; Platelet Count 351 k/uL (150-450); RDW 14.4 % (11.5-15.5); WBC 7.6 k/uL (3.8-10.6)
[2017-10-16 07:12] LABS: Prothrombin Time 53.1 sec (9.0-12.0)
[2017-10-16 07:16] LABS: Calcium 8.2 mg/dL (8.4-10.2); Magnesium 2.2 mg/dL (1.6-2.3); Potassium 3.6 mmol/L (3.5-5.1)
[2017-10-16 08:24] LABS: INR 5.8 (<1.2)
[2017-10-16] MEDS: NON-FORMULARY DRUG (Liraglutide [Victoza 3-Pak] 1.2 MG) SQ SCH (09:07)
[2017-10-16] MEDS: PHENYTOIN SODIUM EXTENDED 100 MG CAP PO SCH ×2 (09:13→20:20)
[2017-10-16] MEDS: CHOLECALCIFEROL 1,000 UNIT TAB PO SCH (09:13)
[2017-10-16] MEDS: PANTOPRAZOLE 40 MG/10 ML VIAL IV SCH (09:13)
[2017-10-16] MEDS: CALCIUM CARB-VIT D 500MG-200UN 1 EACH TAB PO SCH (09:14)
[2017-10-16] MEDS: DONEPEZIL 10 MG TAB PO SCH ×2 (09:14→20:19)
[2017-10-16] MEDS: MEMANTINE 10 MG TAB PO SCH ×2 (09:14→20:19)
[2017-10-16] MEDS: ACETAMINOPHEN TAB 500 MG TAB PO SCH ×3 (09:16→20:20)
--- NOTE | 2017-10-16 10:28 | P.PN ---
Subjective Patient is seen in follow-up for acute kidney injury. Renal function continues to improve with creatinine down to 1.15 today. She was noted to have urinary retention and has a Wylie catheter in place. Patient is not a very reliable historian with history of underlying dementia. Denying any chest pain or shortness of breath. She is noted to have Proteus bacteremia and UTI. She is maintained on IV antibiotics. Vital signs are stable. General: The patient appeared well nourished and normally developed. HEENT: Head exam is unremarkable. Neck is without jugular venous distension. LUNGS: Lungs are clear to auscultation and percussion. Breath sounds decreased. HEART: Rate and Rhythm are regular. First and second heart sounds normal. No murmurs, rubs or gallops. ABDOMEN: Soft. Tender to palpation. EXTREMITITES: No clubbing, cyanosis, or edema. Objective - Vital Signs Vital signs: Vital Signs Temp 98.2 F 10/16/17 08:00 Pulse 90 10/16/17 08:00 Resp 18 10/16/17 08:00 BP 132/73 10/16/17 08:00 Pulse Ox 98 10/16/17 08:00 Intake & Output 10/15/17 10/16/17 10/16/17 18:59 06:59 18:59 Intake Total 90 730 240 Output Total 500 600 Balance -410 130 240 Weight 79.5 kg Intake: Intake, IV Titration 730 Amount Piperacillin-Tazobactam 3 50 .375 gm In Dextrose/Water 1 50ml.bag @ 12.5 mls/hr IVPB Q8H KAELYN Rx#: [id number] Potassium Chloride 10 meq 200 In Water For Injection 1 100ml.bag @ 100 mls/hr IVPB Q1HR KAELYN Rx#: [id number] Sodium Chloride 0.9% 1, 480 000 ml @ 60 mls/hr IV . [id number] KAELYN Rx#:[id number] Oral 90 240 Output: Urine 500 600 Other: Voiding Method Indwelling Catheter Indwelling Catheter Indwelling Catheter # Voids 1 # Bowel Movements 0 1 - Labs CBC & Chem 7: 10/16/17 06:02 10/16/17 06:02 Labs: Abnormal Lab Results - Last 24 Hours (Table) 10/15/17 10/15/17 10/15/17 Range/Units 11:27 16:35 20:51 Lymphocytes # (1.0-4.8) k/uL PT (9.0-12.0) sec INR (<1.2) Sodium (137-145) mmol/L Carbon Dioxide (22-30) mmol/L BUN (7-17) mg/dL Creatinine (0.52-1.04) mg/dL Glucose (74-99) mg/dL POC Glucose (mg/dL) 144 H 226 H 413 H (75-99) mg/dL Calcium (8.4-10.2) mg/dL 10/16/17 10/16/17 10/16/17 Range/Units 06:02 06:02 06:02 Lymphocytes # 0.6 L (1.0-4.8) k/uL PT 53.1 H (9.0-12.0) sec INR 5.8 H* (<1.2) Sodium 146 H (137-145) mmol/L Carbon Dioxide 35 H (22-30) mmol/L BUN 41 H (7-17) mg/dL Creatinine 1.15 H (0.52-1.04) mg/dL Glucose 63 L (74-99) mg/dL POC Glucose (mg/dL) (75-99) mg/dL Calcium 8.2 L (8.4-10.2) mg/dL 10/16/17 Range/Units 06:16 Lymphocytes # (1.0-4.8) k/uL PT (9.0-12.0) sec INR (<1.2) Sodium (137-145) mmol/L Carbon Dioxide (22-30) mmol/L BUN (7-17) mg/dL Creatinine (0.52-1.04) mg/dL Glucose (74-99) mg/dL POC Glucose (mg/dL) 57 L (75-99) mg/dL Calcium (8.4-10.2) mg/dL Microbiology - Last 24 Hours (Table) 10/13/17 16:00 Urine Culture - Preliminary Urine,Catheterized Proteus mirabilis Gram Neg Bacilli 10/13/17 16:49 Blood Culture Gram Stain - Final Blood Blood Culture - Final Proteus mirabilis Assessment and Plan Plan: Assessment: 1. Nonoliguric acute kidney injury secondary to urinary retention. Renal function improving with creatinine down to 1.15 today. 2. Proteus bacteremia source being UTI. Maintain on antibiotics per infectious disease recommendations. 3. Hypokalemia from poor oral intake. Improved post replacement. Magnesium replete. 4. Urinary retention status post Wylie catheter placement. 5. Mild hyponatremia secondary to lack of oral water intake. Plan: I will change IV fluids to half-normal saline to be run at 75 mL an hour. Maintain Wylie catheter. Replace potassium. 40 mEq today. Repeat electrolytes in the morning. Encouraged oral intake, including free water.
[2017-10-16] MEDS: ALBUTEROL NEBULIZED 2.5 MG/3 ML INHALATION PRN ×2 (12:01→20:42)
[2017-10-16 12:20] LABS: Glucose,Whole Blood 174 mg/dL (75-99)
[2017-10-16] MEDS: SODIUM CHLORIDE 0.45% 1,000 ML IV SCH (12:22)
[2017-10-16] MEDS: POTASSIUM CHLORIDE 20 MEQ in WATER FOR INJECTION 1 100ML.BAG IVPB SCH ×2 (12:23→15:58)
[2017-10-16] MEDS: cefTRIAXone IN SWFI 2,000 MG/20 ML SYRINGE IVP SCH (15:59)
[2017-10-16 17:20] LABS: Glucose,Whole Blood 226 mg/dL (75-99)
[2017-10-16] MEDS: AMMONIUM LACTATE 12% LOTION 225 GM BTL TOPICAL SCH (20:19)
[2017-10-16] MEDS: ATORVASTATIN 80 MG TAB PO SCH (20:19)
[2017-10-16 21:12] LABS: Glucose,Whole Blood 179 mg/dL (75-99)
[2017-10-16] MEDS: INSULIN DETEMIR 100 UNIT/ML 10 ML VIAL SQ SCH (21:37)
--- NOTE | 2017-10-16 22:04 | PN ---
PROGRESS NOTE DATE OF SERVICE: 10/16/2017 This 72-year-old woman who was admitted with acute renal failure, severe dehydration, prerenal renal failure also had some postop at this time. The patient had a catheter placed and creatinine improved to 1.15. INR has gone up to 5.8. Patient remains confused even though sensorium has improved slightly. EXAM: Pulse 88, blood pressure 144/73, respirations 16, temperature 99.5, pulse ox 98 % on 2 L. the patient is conscious, confused. HEENT: Conjunctivae normal. Oral mucosa moist. NECK: No jugular venous distention. No carotid bruit. No lymph node enlargement. CARDIOVASCULAR: S1, S2 muffled. RESPIRATIONS: Breath sounds diminished in the bases. A few scattered rhonchi and crackles. ABDOMEN: Soft, obese, nontender. No mass palpable. LEGS: No edema and no swelling. NERVOUS SYSTEM: Higher functions as mentioned earlier. Moves all 4 limbs. No focal deficits. Lymphatics: No lymph nodes palpable in the neck, axillae or groin. SKIN: No ulcer, rash or bleeding. LABS: CBC within normal limits. INR 5.8 and creatinine 1.1. ASSESSMENT: 1. Acute renal failure with possibly severe dehydration with possible prerenal failure as well as postobstructive renal failure with acute tubular necrosis, rule out cardiorenal syndrome. 2. Coumadin coagulopathy. 3. Urinary tract infection with possible sepsis present on admission. 4. Hypokalemia. 5. Increased plasma lactic acid. 6. Hyperkalemia on admission. 7. Wylie catheter. 8. Hyponatremia. 9. Increased AST, ALT, possibly secondary to sepsis. 10.Increased WBC. 11.Congestive heart failure. 12.Cerebrovascular accident, transient ischemic attack. 13.Dementia. 14.Diabetes type 2. 15.History of deep vein thrombosis. 16.Hypertension. 17.Hyperlipidemia. 18.History of pulmonary embolism. 19.History of seizure disorder. 20.Chronic kidney disease stage 3, baseline. 21.History of transient ischemic attack. 22.History of degenerative joint disease. 23.FULL CODE. RECOMMENDATIONS AND DISCUSSION: Recommend to continue current medications. Continue to monitor and symptomatic treatment. Otherwise, at this time, cautious IV fluids, antibiotics. Hold Coumadin today. Guarded prognosis because of multiple complex medical issues and further recommendations to follow. MMODL / IJN: [id number] / JOHN
--- NOTE | 2017-10-17 00:07 | PN ---
PROGRESS NOTE DATE OF SERVICE: 10/16/2017. REASON FOR FOLLOWUP: Proteus mirabilis bacteremia, urinary source. INTERVAL HISTORY: The patient is afebrile. He has been breathing comfortably. Remains to be pleasantly confused. Unable to provide any reliable history. No nausea, vomiting, diarrhea has been reported. EXAMINATION: Blood pressure 123/71 with a pulse of 90, temperature 98.2, 97% on 2 L nasal cannula. GENERAL DESCRIPTION: An elderly female lying in bed in no distress. RESPIRATORY SYSTEM: Unlabored breathing. Clear to auscultation anteriorly. HEART: S1, S2 regular rate and rhythm. LABS: Hemoglobin 11.5, white count 7.6, BUN 41, creatinine 1.15. DIAGNOSTIC IMPRESSION AND PLAN: Patient with Proteus mirabilis bacteremia secondary to the urinary source. Patient is to continue with Rocephin with plan to finish therapy with p.o. Ceftin. Continue supportive care. MMODL / IJN: [id number] /
[2017-10-17] MEDS: SODIUM CHLORIDE 0.45% 1,000 ML IV SCH ×2 (03:11→12:27)
[2017-10-17 05:54] LABS: Glucose,Whole Blood 153 mg/dL (75-99)
[2017-10-17] MEDS: carBAMazepine 200 MG TAB PO SCH ×3 (06:06→22:02)
[2017-10-17] MEDS: INSULIN ASPART 100 UNIT/ML 1 ML 10 ML VIAL SQ SCH ×4 (06:06→22:04)
[2017-10-17 06:51] LABS: Basophils % (A) 0 %; Eosinophils # (A) 0.2 k/uL (0-0.7); Eosinophils % (A) 3 %; HCT 33.2 % (34.0-46.0); Lymphocytes # (A) 0.9 k/uL (1.0-4.8); Lymphocytes % (A) 10 %; MCH 29.8 pg (25.0-35.0); MCHC 33.1 g/dL (31.0-37.0); MCV 90.1 fL (80.0-100.0); Mean Platelet Volume 6.6; Monocytes # (A) 0.6 k/uL (0-1.0); Monocytes % (A) 6 %; Neutrophils % (A) 80 %; Platelet Count 322 k/uL (150-450); RBC 3.68 m/uL (3.80-5.40); RDW 14.9 % (11.5-15.5); WBC 8.8 k/uL (3.8-10.6)
[2017-10-17 07:11] LABS: Prothrombin Time 52.7 sec (9.0-12.0)
[2017-10-17 07:15] LABS: INR 5.8 (<1.2)
[2017-10-17 07:19] LABS: Calcium 7.2 mg/dL (8.4-10.2); Magnesium 1.7 mg/dL (1.6-2.3); Potassium 3.9 mmol/L (3.5-5.1)
[2017-10-17] MEDS: NON-FORMULARY DRUG (Liraglutide [Victoza 3-Pak] 1.2 MG) SQ SCH (09:03)
[2017-10-17] MEDS: DONEPEZIL 10 MG TAB PO SCH ×2 (09:04→20:59)
[2017-10-17] MEDS: PANTOPRAZOLE 40 MG/10 ML VIAL IV SCH (09:04)
[2017-10-17] MEDS: CALCIUM CARB-VIT D 500MG-200UN 1 EACH TAB PO SCH (09:05)
[2017-10-17] MEDS: CHOLECALCIFEROL 1,000 UNIT TAB PO SCH (09:05)
[2017-10-17] MEDS: MEMANTINE 10 MG TAB PO SCH ×2 (09:05→20:59)
[2017-10-17] MEDS: PHENYTOIN SODIUM EXTENDED 100 MG CAP PO SCH ×2 (09:06→22:02)
[2017-10-17] MEDS: ACETAMINOPHEN TAB 500 MG TAB PO SCH ×3 (09:08→21:00)
[2017-10-17 11:51] LABS: Glucose,Whole Blood 171 mg/dL (75-99)
[2017-10-17] MEDS ORDERED: PHYTONADIONE ORAL 5 MG/5 ML ORAL.SYRG PO STA (13:17)
[2017-10-17] MEDS: cefTRIAXone IN SWFI 2,000 MG/20 ML SYRINGE IVP SCH (14:47)
--- NOTE | 2017-10-17 15:02 | PN ---
PROGRESS NOTE Patient is seen for followup for acute kidney injury. Her renal function has improved. Creatinine is down to 0.7. PHYSICAL EXAMINATION: Patient is comfortable. She is not in any acute distress. Blood pressure is 127/77, heart rate 86 per minute, she is afebrile. Examination of the heart, S1, S2. Examination of the lungs, bilateral breath sounds are heard. Abdomen is soft, nontender. Examination of the lower extremities shows no evidence of edema. LABS: Show sodium 130, potassium 3.9, BUN 25, creatinine 0.7, hemoglobin 11.0 g/dL. ASSESSMENT: 1. Acute kidney injury with obstruction uropathy, status post indwelling Wylie catheter and significant improvement in renal functions with creatinine down to 0.7 mg/dL now. 2. Intravascular volume depletion, currently improved. Patient is maintained on half- normal saline at 75 mL an hour. 3. Mild hypernatremia, now improved. 4. Sepsis from urinary tract infection with urine culture growing Proteus mirabilis. 5. Gram-negative bacteremia with blood culture growing Proteus mirabilis, maintained on Rocephin. PLAN: Continue to encourage increased oral intake. Continue with the Wylie catheter for now. Continue antibiotics. MMODL / IJN: [id number] /
[2017-10-17 16:35] LABS: Glucose,Whole Blood 157 mg/dL (75-99)
--- NOTE | 2017-10-17 18:56 | PN ---
PROGRESS NOTE DATE OF SERVICE: 10/17/2017 This 72-year-old woman who was admitted with acute renal failure with severe dehydration is improving significantly. Sensorium is slightly improved, but the patient continues to be confused, which is probably her baseline. The cultures are showing Proteus mirabilis on the urine and blood and other additional Gram-negative bacilli in the urine also. On exam, the patient is conscious but confused. Pulse 90, blood pressure 134/67, respiration 18, temperature 97.1, pulse ox 94% on 2 L. HEENT: Conjunctivae normal. Oral mucosa moist. NECK: No jugular venous distention. No carotid bruit. No lymph node enlargement. CARDIOVASCULAR SYSTEM: S1, S2 muffled. No S3. No S4. RESPIRATORY SYSTEM: Breath sounds diminished at the bases. A few scattered rhonchi. ABDOMEN: Soft, non-tender. NERVOUS SYSTEM: No focal deficit. LABS: WBC 8.8, hemoglobin 11. INR is 5.8, calcium 7.2. ASSESSMENT: 1. Acute renal failure with possible severe dehydration with possible prerenal renal failure as well as post-obstructive renal failure with acute tubular necrosis; rule out cardiorenal syndrome. 2. Coumadin coagulopathy. 3. Urinary tract infection with Proteus mirabilis and sepsis, present on admission. 4. Hypokalemia. 5. Increased plasma lactic acid. 6. Hyperkalemia on admission. 7. Wylie catheter. 8. Hyponatremia. 9. Increased AST, ALT, possibly secondary to sepsis. 10.Increased white count. 11.Congestive heart failure. 12.Cerebrovascular accident, transient ischemic attack. 13.Dementia. 14.Diabetes mellitus, type 2. 15.History of deep venous thrombosis. 16.Hypertension. 17.Hyperlipidemia. 18.History of pulmonary embolism. 19.History of seizure disorder. 20.Chronic kidney disease, stage III, baseline. 21.History of transient ischemic attack. 22.History of degenerative joint disease. 23.FULL CODE. RECOMMENDATIONS AND DISCUSSION: I recommend to continue current medications, continue monitoring, symptomatic treatment. Otherwise at this time we will monitor the patient closely. I would recommend vitamin K 2.5 mg and closely follow with Nephrology. PT/OT evaluation and possible ECF rehab. Guarded prognosis. Further recommendations to follow. MMODL / IJN: [id number] /
[2017-10-17] MEDS: ATORVASTATIN 80 MG TAB PO SCH (20:59)
[2017-10-17] MEDS: AMMONIUM LACTATE 12% LOTION 225 GM BTL TOPICAL SCH (20:59)
[2017-10-17 21:17] LABS: Glucose,Whole Blood 185 mg/dL (75-99)
[2017-10-17] MEDS: INSULIN DETEMIR 100 UNIT/ML 10 ML VIAL SQ SCH (22:02)
--- NOTE | 2017-10-18 04:00 | PN ---
PROGRESS NOTE DATE OF SERVICE: 10/17/2017 REASON FOR FOLLOWUP: Proteus mirabilis bacteremia and urinary tract infection. INTERVAL HISTORY: The patient is afebrile. She seems to be breathing comfortably; however, she remains pleasantly confused. Unable to provide any history. PHYSICAL EXAMINATION: Blood pressure 130/72 with a pulse of 88, temperature of 99. She is 98% on 2 L nasal cannula. General description is an elderly female lying in bed in no distress. RESPIRATORY SYSTEM: Unlabored breathing. Clear to auscultation anteriorly. HEART: S1, S2. Regular rate and rhythm. ABDOMEN: Soft. No tenderness. LABS: Hemoglobin is 11, white count 8.8. BUN of 25, creatinine 0.77. DIAGNOSTIC IMPRESSION AND PLAN: Patient with Proteus mirabilis urinary tract infection with secondary bacteremia with being intermediate to Cipro. Currently on Rocephin 2 grams daily to continue. Continue with supportive care. MMODL / IJN: [id number] /
[2017-10-18 05:57] LABS: Glucose,Whole Blood 125 mg/dL (75-99)
[2017-10-18] MEDS: INSULIN ASPART 100 UNIT/ML 1 ML 10 ML VIAL SQ SCH ×3 (06:11→17:50)
[2017-10-18 06:19] LABS: Basophils % (A) 0 %; Eosinophils # (A) 0.2 k/uL (0-0.7); Eosinophils % (A) 2 %; HCT 33.2 % (34.0-46.0); HGB 11.3 gm/dL (11.4-16.0); Lymphocytes # (A) 0.9 k/uL (1.0-4.8); Lymphocytes % (A) 10 %; MCH 30.4 pg (25.0-35.0); MCV 89.2 fL (80.0-100.0); Mean Platelet Volume 6.8; Monocytes # (A) 0.6 k/uL (0-1.0); Monocytes % (A) 6 %; Neutrophils # (A) 7.6 k/uL (1.3-7.7); Neutrophils % (A) 80 %; Platelet Count 336 k/uL (150-450); RBC 3.72 m/uL (3.80-5.40); RDW 14.6 % (11.5-15.5); WBC 9.5 k/uL (3.8-10.6)
[2017-10-18 06:26] LABS: Anion Gap 8 mmol/L; Blood Urea Nitrogen 21 mg/dL (7-17); Calcium 7.3 mg/dL (8.4-10.2); Carbon Dioxide 28 mmol/L (22-30); Chloride 97 mmol/L (98-107); Glucose 132 mg/dL (74-99); Potassium 3.8 mmol/L (3.5-5.1); Sodium 133 mmol/L (137-145)
[2017-10-18 06:29] LABS: INR 1.4 (<1.2); Prothrombin Time 12.8 sec (9.0-12.0)
[2017-10-18] MEDS: SODIUM CHLORIDE 0.45% 1,000 ML IV SCH (06:46)
[2017-10-18] MEDS: carBAMazepine 200 MG TAB PO SCH ×2 (06:47→14:30)
[2017-10-18] MEDS: PANTOPRAZOLE 40 MG/10 ML VIAL IV SCH (09:10)
[2017-10-18] MEDS: MEMANTINE 10 MG TAB PO SCH (09:10)
[2017-10-18] MEDS: ACETAMINOPHEN TAB 500 MG TAB PO SCH ×2 (09:10→16:26)
[2017-10-18] MEDS: DONEPEZIL 10 MG TAB PO SCH (09:11)
[2017-10-18] MEDS: PHENYTOIN SODIUM EXTENDED 100 MG CAP PO SCH (09:11)
[2017-10-18] MEDS: CALCIUM CARB-VIT D 500MG-200UN 1 EACH TAB PO SCH (09:11)
[2017-10-18] MEDS: CHOLECALCIFEROL 1,000 UNIT TAB PO SCH (09:11)
[2017-10-18] MEDS: NON-FORMULARY DRUG (Liraglutide [Victoza 3-Pak] 1.2 MG) SQ SCH (09:12)
[2017-10-18] MEDS ORDERED: SODIUM CHLORIDE 0.9% 1,000 ML IV SCH (10:30)
[2017-10-18 11:45] LABS: Glucose,Whole Blood 146 mg/dL (75-99)
[2017-10-18 13:44] VITALS: BMI 23.4
[2017-10-18] MEDS: cefTRIAXone IN SWFI 2,000 MG/20 ML SYRINGE IVP SCH (15:59)
--- NOTE | 2017-10-18 16:05 | XR ---
EXAMINATION TYPE: XR chest 1V portable DATE OF EXAM: 10/18/2017 COMPARISON: Prior chest 10/13/2017 HISTORY: Follow-up congestive heart failure TECHNIQUE: Single frontal view of the chest is obtained. FINDINGS: Patient is rotated. Heart remains enlarged. Interstitium mildly increased, aeration may be improved. No evident pneumothorax or pleural effusion. IMPRESSION: Suspect some improvement in aeration.
--- NOTE | 2017-10-18 16:20 | P.DS ---
Providers Date of admission: 10/13/17 18:40 Expected date of discharge: 10/18/17 Attending physician: Tammy Donis Consults: 10/13/17 20:37 Consult Physician Routine Consulting Provider: Navneet Peck Consult Reason/Comments: chf Do you want consulting provider notified?: Yes 10/13/17 20:38 Consult Physician Routine Consulting Provider: Sharifa Hawkins Consult Reason/Comments: arf/cardio renal Do you want consulting provider notified?: Yes 10/14/17 12:02 Consult Physician Routine Consulting Provider: Coleen Tee Consult Reason/Comments: POSITIVE BLOOD CULTURES Do you want consulting provider notified?: Yes Primary care physician: Sam Jones Hospital Course: Final Diagnoses: 1. Acute renal failure with severe dehydration, possible prerenal renal failure as well as postobstructive renal failure with ATN, rule out cardiorenal syndrome 2.Proteus mirabilis UTI with secondary bacteremia 3. Coumadin coagulopathy, dose decreased 4. Elevated LFTs, possibly secondary to sepsis 5. Chronic kidney disease, stage III 6. Dementia 7. History of CVA, DVT 8. Hypertension 9. Dyslipidemia 10. Hyperkalemia on admission secondary to #1, resolved. Hospital course: This is a 72-year-old female admitted with acute renal failure , severe dehydration, acute UTI and multiple other medical issues. Evaluated by nephrology, infectious disease and cardiology. Maintained on gentle IV fluid hydration, IV antibiotics. Cultures reporting Proteus mirabilis in both urine and blood and other additional gram-negative bacilli in the urine also. Cleared by all consults for discharge. Patient is being discharged to [facility] subacute rehab in a stable condition with guarded prognosis. Microbiology 10/13/17 16:49 Blood Blood Culture Gram Stain - Final 10/13/17 16:49 Blood Blood Culture - Final Proteus mirabilis 10/13/17 16:00 Urine,Catheterized Urine Culture - Preliminary Proteus mirabilis Gram Neg Bacilli 10/13/17 16:49 Blood Blood Culture - Final EXAM: Sitting up alert and oriented 1, no acute distress.CV: S1, S2 muffled.LUNGS: Bilateral bases diminished, occasional scattered rhonchi.ABD: Soft, nontender, positive bowel sounds.NEURO: No focal deficits. The impression and plan of care has been dictated as directed. : I performed a history and examination of this patient, discussed the same with the dictator. I agree with the dictator's note ,documented as a scribe. Any additional findings or plans will be noted. Time taken: 35 minutes Patient Condition at Discharge: Stable Plan - Discharge Summary New Discharge Prescriptions: New Acetaminophen Tab [Tylenol] 500 mg PO TID tab Memantine [Namenda] 10 mg PO BID tab Furosemide [Lasix] 20 mg PO DAILY #1 tab Continue carBAMazepine [TEGretol] 400 mg PO TID@0600,1400,2200 Phenytoin Sodium Extended [Dilantin] 200 mg PO BID@0900,2100 Donepezil [Aricept] 10 mg PO BID@0900,2100 Calcium Carbonate/Vitamin D3 [Calcium 600-Vit D3 400 Tablet] 1 tab PO DAILY@ 0900 Ammonium Lactate Lotion [Lac-Hydrin 12% Lotion] 1 applic TOPICAL HS@2100 Acetaminophen Tab [Tylenol] 650 mg PO Q4H PRN PRN Reason: Pain Loratadine [Claritin] 10 mg PO DAILY PRN PRN Reason: Allergy Symptoms Bismuth Subsalicylate [Pepto-Bismol] 524 mg PO Q4HR PRN PRN Reason: Diarrhea guaiFENesin SYRUP 100MG/5ML [Robitussin] 200 mg PO Q4HR PRN PRN Reason: Cough Albuterol Nebulized [Ventolin Nebulized] 2.5 mg INHALATION RT-Q6H PRN PRN Reason: Shortness Of Breath Liraglutide [Victoza 3-Evelio] 1.2 mg SQ DAILY@0900 Cholecalciferol [Vitamin D3] 5,000 unit PO DAILY@0900 Insulin Detemir [Levemir Flextouch] 35 unit SQ HS@2100 Warfarin [Coumadin] 1.5 mg PO DAILY@1700 Atorvastatin Calcium [Lipitor] 80 mg PO HS@2100 Omeprazole [PriLOSEC] 40 mg PO DAILY@0600 Ondansetron [Zofran] 4 mg PO TID PRN PRN Reason: Nausea Bisacodyl [Dulcolax] 10 mg RECTAL DAILY PRN PRN Reason: Constipation Ensure Clear 1 can PO PC-TID@06,14,22 Discontinued Potassium Chloride ER [K-Dur 10] 10 meq PO DAILY@1200 Warfarin [Coumadin] 2 mg PO DAILY@1700 Furosemide [Lasix] 40 mg PO DIRECTED Memantine HCl [Namenda Xr] 28 mg PO DAILY@0900 Pioglitazone [Actos] 30 mg PO DAILY@09 Insulin Aspart [Novolog Flexpen] 5 unit SQ AC-TID@,, Potassium Chloride ER [K-Dur 20] 20 meq PO BID@0900,1700 Metolazone [Zaroxolyn] 2.5 mg PO DAILY@0600 Discharge Medication List Calcium Carbonate/Vitamin D3 [Calcium 600-Vit D3 400 Tablet] 1 tab PO DAILY@ 0903/10/15 [History] Donepezil [Aricept] 10 mg PO BID@09,209903/10/15 [History] Phenytoin Sodium Extended [Dilantin] 200 mg PO BID@899,209903/10/15 [History] carBAMazepine [TEGretol] 400 mg PO TID@0600,1400,2200 03/10/15 [History] Acetaminophen Tab [Tylenol] 650 mg PO Q4H PRN 08/24/17 [History] Albuterol Nebulized [Ventolin Nebulized] 2.5 mg INHALATION RT-Q6H PRN 08/24/17 [ History] Ammonium Lactate Lotion [Lac-Hydrin 12% Lotion] 1 applic TOPICAL HS@2099 [History] Atorvastatin Calcium [Lipitor] 80 mg PO HS@209908/24/17 [History] Bismuth Subsalicylate [Pepto-Bismol] 524 mg PO Q4HR PRN 08/24/17 [History] Cholecalciferol [Vitamin D3] 5,000 unit PO DAILY@89908/24/17 [History] Insulin Detemir [Levemir Flextouch] 35 unit SQ HS@209908/24/17 [History] Liraglutide [Victoza 3-Evelio] 1.2 mg SQ DAILY@0908/24/17 [History] Loratadine [Claritin] 10 mg PO DAILY PRN 08/24/17 [History] Warfarin [Coumadin] 1.5 mg PO DAILY@1700 08/24/17 [History] guaiFENesin SYRUP 100MG/5ML [Robitussin] 200 mg PO Q4HR PRN 08/24/17 [History] Omeprazole [PriLOSEC] 40 mg PO DAILY@0600 09/13/17 [History] Ondansetron [Zofran] 4 mg PO TID PRN 09/13/17 [History] Bisacodyl [Dulcolax] 10 mg RECTAL DAILY PRN 10/13/17 [History] Ensure Clear 1 can PO PC-TID@06,14,22 10/13/17 [History] Acetaminophen Tab [Tylenol] 500 mg PO TID tab 10/18/17 [Rx] Furosemide [Lasix] 20 mg PO DAILY #1 tab 10/18/17 [Rx] Memantine [Namenda] 10 mg PO BID tab 10/18/17 [Rx] Follow up Appointment(s)/Referral(s): [facility] [Provider Group] - 1 Week Sam Jones MD [Primary Care Provider] - 10/27/17 4:20 pm () Elian Eugene DO [STAFF PHYSICIAN] - 1 Week Coleen Tee MD [STAFF PHYSICIAN] - 1 Week Patient Instructions/Handouts: Acute Kidney Injury (DC), Urinary Tract Infection in Women (DC), Hyperkalemia (DC), Vitamin K in Foods (DC), Warfarin Toxicity (GEN) Activity/Diet/Wound Care/Special Instructions: [facility] antibiotics as per infectious disease. Diet: Dysphagia level I cbc,cmp in 3 days PT/INR daily
[2017-10-18 16:37] VITALS: BP 119/81; PULSE 80; RESP 15; TEMP 97.6
[2017-10-18 17:14] LABS: Glucose,Whole Blood 138 mg/dL (75-99)
--- NOTE | 2017-10-18 18:04 | PN ---
PROGRESS NOTE Patient is seen for followup for acute kidney injury. Her renal function has improved. The patient also had urine retention and currently has an indwelling Wylie catheter. There are plans for discharge. The IV fluids were switched to half-normal saline yesterday. Sodium is down slightly to 133. On examination, blood pressure is 125/61, heart rate 82 per minute. Patient is afebrile. EXAMINATION OF THE HEART: S1, S2. EXAMINATION OF LUNGS: Bilateral breath sounds are heard. ABDOMEN: Soft, non-tender. Examination of lower extremities shows trace edema bilaterally. APPLICATION ARCHITECT exam is grossly intact. Labs show sodium 133, potassium 3.8, chloride 97, BUN 21, serum creatinine 0.7, hemoglobin 11.3 g/dL. ASSESSMENT: 1. Acute kidney injury, prerenal, currently significantly improved. The IV fluids will be changed to normal saline, as serum sodium is slightly low. I will decrease the amount of fluids, given the slight edema that is noted. 2. Urine retention, currently with indwelling Wylie catheter. We can try voiding trials. 3. Altered mentation, somewhat improved. 4. Hypernatremia on initial admission, now improved. 5. Sepsis from urinary tract infection with urine culture growing Proteus mirabilis. 6. Gram-negative bacteremia with Proteus mirabilis from urinary tract infection, maintained on Rocephin. PLAN: Change IV fluids to normal saline. Decrease the rate to about 40 to 50 mL/hour. Encourage increased oral intake. May try to discontinue the Wylie catheter for now prior to discharge. The patient is going to [facility]; they can monitor for post-voidal residuals and urine retention. MMODL / IJN: [id number] /
--- NOTE | 2017-10-18 18:19 | PN ---
PROGRESS NOTE DATE OF SERVICE: 10/18/2017 REASON FOR FOLLOWUP: E coli bacteremia secondary to urinary source. INTERVAL HISTORY: The patient is afebrile. The patient remains pleasantly confused, unable to provide any history. No nausea, vomiting or any diarrhea present as per staff. The patient is able to take her pills with some . On examination, blood pressure 119/81 with a pulse of 80, temperature 97.6. She is 100% on 2 L nasal cannula. General description is an elderly female lying in bed in no distress. RESPIRATORY SYSTEM: Unlabored breathing. Clear to auscultation anteriorly. HEART: S1, S2. Regular rate and rhythm. ABDOMEN: Soft. No tenderness. LABS: Hemoglobin is 11.3, white count 9.5, BUN of 21, creatinine 0.70. DIAGNOSTIC IMPRESSION AND PLAN: Patient with Proteus mirabilis bacteremia secondary to urinary source with intermediate sensitivity to ciprofloxacin. Plan to finish therapy with oral Ceftin 500 mg twice a day for another 10 days with close outpatient followup. Continue with supportive care. MMODL / IJN: [id number] /
[2017-10-19] MEDS ORDERED: PANTOPRAZOLE 40 MG TABLET PO SCH (09:00)
== END 2017-10-18 19:33 | DRG 871 ==
LOC: EC 15:19 → 6SEL 18:40
PROVIDERS: ADMIT Hospitalist; ATTEND Hospitalist
DX: A41.89 Other specified sepsis (principal); N17.0 Acute kidney failure with tubular necrosis; N39.0 Urinary tract infection, site not specified; E87.1 Hypo-osmolality and hyponatremia; I13.0 Hypertensive heart and chronic kidney disease with heart failure and stage 1 through stage 4 chronic kidney disease, or unspecified chronic kidney disease; B96.4 Proteus (mirabilis) (morganii) as the cause of diseases classified elsewhere; R65.20 Severe sepsis without septic shock; F03.90 Unspecified dementia, unspecified severity, without behavioral disturbance, psychotic disturbance, mood disturbance, and anxiety; E78.5 Hyperlipidemia, unspecified; E86.0 Dehydration; E87.5 Hyperkalemia; E11.22 Type 2 diabetes mellitus with diabetic chronic kidney disease; N18.3 Chronic kidney disease, stage 3 (moderate); G40.909 Epilepsy, unspecified, not intractable, without status epilepticus; E55.9 Vitamin D deficiency, unspecified; E11.51 Type 2 diabetes mellitus with diabetic peripheral angiopathy without gangrene; E87.6 Hypokalemia; I25.10 Atherosclerotic heart disease of native coronary artery without angina pectoris; Z96.1 Presence of intraocular lens; R79.1 Abnormal coagulation profile; I50.9 Heart failure, unspecified; M19.041 Primary osteoarthritis, right hand; M19.042 Primary osteoarthritis, left hand; M81.0 Age-related osteoporosis without current pathological fracture; N13.9 Obstructive and reflux uropathy, unspecified; Z86.73 Personal history of transient ischemic attack (TIA), and cerebral infarction without residual deficits; Z86.718 Personal history of other venous thrombosis and embolism; Z79.01 Long term (current) use of anticoagulants; Z79.4 Long term (current) use of insulin; Z79.899 Other long term (current) drug therapy; Z88.5 Allergy status to narcotic agent; Z88.8 Allergy status to other drugs, medicaments and biological substances; Z86.711 Personal history of pulmonary embolism; Z90.710 Acquired absence of both cervix and uterus; Z90.49 Acquired absence of other specified parts of digestive tract
CPT/HCPCS: 36415; 70450; 71045; 71046; 76700; 80048; 80051; 80053; 80156; 80185; 80306; 81001; 82550; 82553; 83605; 83735; 84100; 84484; 85025; 85610; 85730; 87040; 87077; 87086; 87186; 93005; 94640; 94760; 96361; 96365; 96366; 96367; 96375; 99291